=== PATIENT | male | born 1950 | race Caucasian/White ===

== ENCOUNTER 2025-01-09 08:31 | Inpatient (IN) ==
[2025-01-09 09:03] LABS: BASOPHILS % (AUTO) 0.2 %; HCT - HEMATOCRIT 38.8 % (42.0-52.0); HGB - HEMOGLOBIN 12.7 g/dL (14.0-18.0); LYMPHOCYTES % (AUTO) 11.7 %; MEAN CORPUSCULAR HEMOGLOBIN 32.1 pg (27.0-31.0); MEAN CORPUSCULAR HGB CONC 32.7 g/dL (32.0-36.0); MEAN PLATELET VOLUME 9.7 fL (7.4-11.4); MONOCYTES % (AUTO) 2.9 %; NEUTROPHILS % (AUTO) 83.5 %; PLT - PLATELET COUNT 146 10^3/uL (130-450); RED BLOOD COUNT 3.96 10^6/uL (4.70-6.10); RED CELL DISTRIBUTION WIDTH 13.2 % (12.0-15.0); WHITE BLOOD COUNT 4.2 x10^3/uL (4.8-10.8)
[2025-01-09 09:04] LABS: ABNORMAL LYMPHS % (MANUAL) 0 %
--- NOTE | 2025-01-09 09:09 | ED Physician Documentation ---
History of Present Illness Stated complaint Stated Complaint: COUGH/SOA Chief complaint Chief Complaint: Resp History obtained from History obtained from: Patient and Family History of Present Illness Pain level max: 0 Pain level now: 0 Additonal information Additional information: Patient is a 74-year-old male who was sent from the walk-in clinic for increasing shortness of breath over the past several days. Oxygen saturation at the walk-in clinic was 79% on room air. No fevers but has had cough with green sputum. He has a history of Parkinson's disease and takes carbidopa levodopa. No abdominal pain, nausea, vomiting. Had a chest x-ray there which was consistent with multifocal pneumonia, combined with the hypoxia was sent here for evaluation. Patient does not have any history of lung disease, does not use oxygen at home Review of Systems Constitutional Denies: Fever or Chills Ears, nose, mouth, and throat Denies: Neck pain Respiratory Reports: Cough Gastrointestinal Denies: Nausea or Vomiting Musculoskeletal Denies: Back pain or Neck pain Integumentary/Breast Denies: Rash Meds/Allgy Home Medications Ambulatory Orders Medication Instructions Recorded Confirmed carbidopa 25 mg-levodopa 100 mg 2 tab PO QID 01/09/25 01/09/25 tablet Allergies Allergies Allergy/AdvReac Type Severity Reaction Status Date / Time No Known Drug Allergies Allergy Verified 01/09/25 08:39 PFSH Active Problems All Active Problems (Updated 01/09/25 @ 10:13 by Tony Lew MD) Hypoxia (Acute) Pneumonia (Acute) Chest congestion (Acute) Encounter for long-term current use of medication (Acute) Parkinson disease (Acute) Social History Social History (Updated 11/16/24 @ 16:17 by Shasta Siddiqi NP) Smoking Status: Never smoker Second hand tobacco smoke exposure: No Do you dip or chew tobacco?: No Do you vape?: No Patient requests smoking cessation consult: No Initiate information on smoking cessation: No Relationship: Level: Assisted Home Mobility Equipment: Cane and Walker Do you feel safe in your home environment?: Yes Suffered physical, verbal, emotional, or financial abuse?: No Substance Use: denies use POLST Patient has POLST: No Exam Constitutional normal general appearance and no apparent distress HENMT oropharynx normal moist mucous membranes Eyes PERRL Neck/C-Spine visual inspection normal Respiratory normal respiratory effort Diminished breath sounds with crackles bilaterally Cardiovascular normal heart rate noted and regular rhythm noted Gastrointestinal abdomen normal to inspection, abdomen soft to palpation, nontender to palpation and nondistended Genitourinary no CVA tenderness Extremities no edema Neurology speech normal Psychiatry mental status grossly normal and oriented x3 Skin skin color normal Results Vitals Vitals: Vital Signs - 24 hr 01/09/25 08:36 01/09/25 08:40 01/09/25 08:41 Temperature 36.5 C Temperature Source Temporal Artery Scan Pulse Rate 64 Respiratory Rate 20 Blood Pressure 120/70 O2 Saturation 88 L 94 Oxygen Delivery Method Nasal Cannula O2 Source Room air Nasal cannula If not protocol: Oxygen Flow, liters/minute 6 6 Pain Intensity 0 01/09/25 10:00 01/09/25 10:41 Temperature Temperature Source Pulse Rate 61 61 Respiratory Rate 20 18 Blood Pressure 121/77 112/74 O2 Saturation 94 95 Oxygen Delivery Method O2 Source Nasal cannula Nasal cannula If not protocol: Oxygen Flow, liters/minute 6 6 Pain Intensity 0 0 Oxygen O2 Source Nasal cannula EKG (time done) 0855: EKG releavant findings:: EKG personally interpreted by author of this note. Relevant findings are: Rate: Other (59 bpm. Sinus rhythm. Short IA interval. Right bundle branch block, left anterior fascicular block. No ischemic changes) Labs Labs: Laboratory Tests 01/09/25 01/09/25 01/09/25 08:51 08:56 09:44 WBC 4.2 L RBC 3.96 L Hgb 12.7 L Hct 38.8 L MCV 98.0 H MCH 32.1 H MCHC 32.7 RDW 13.2 Plt Count 146 MPV 9.7 Neut # (Auto) Not Reportable Lymph # (Auto) Not Reportable [place] # (Auto) Not Reportable Eos # (Auto) Not Reportable Baso # (Auto) Not Reportable Absolute Nucleated RBC Not Reportable Total Counted 100 Band Neuts % (Manual) 2 Abnorm Lymph % (Manual) 0 Nucleated RBC % Not Reportable Neutrophils # (Manual) 3.6 Lymphocytes # (Manual) 0.4 L Monocytes # (Manual) 0.2 Eosinophils # (Manual) 0.0 Basophils # (Manual) 0.0 Differential Comment MANUAL DIFFERENTIAL Platelet Estimate NORMAL (130-450,000) Platelet Morphology NORMAL APPEARANCE RBC Morph Micro Appear NORMAL APPEARANCE Sodium 141 Potassium 4.3 Chloride 107 Carbon Dioxide 25 Anion Gap 9.0 BUN 37 H Creatinine 1.7 H Estimated GFR (MDRD) 39 L Glucose 104 Lactic Acid 0.9 Calcium 8.4 L Total Bilirubin 0.4 AST 24 ALT < 3 L Alkaline Phosphatase 40 L B-Natriuretic Peptide 57 Total Protein 7.4 Albumin 3.3 Globulin 4.1 Albumin/Globulin Ratio 0.8 L Nasal Adenovirus (PCR) NOT DETECTED Nasal B. parapertussis DNA (PCR) NOT DETECTED Nasal Coronavir 229E PCR NOT DETECTED Nasal Coronavir HKU1 PCR NOT DETECTED Nasal Coronavir NL63 PCR NOT DETECTED Nasal Coronavir OC43 PCR NOT DETECTED Nasal Enterovir/Rhinovir PCR NOT DETECTED Nasal Influenza B PCR NOT DETECTED Nasal Influenza A PCR NOT DETECTED Nasal Parainfluen 1 PCR NOT DETECTED Nasal Parainfluen 2 PCR NOT DETECTED Nasal Parainfluen 3 PCR NOT DETECTED Nasal Parainfluen 4 PCR NOT DETECTED Nasal RSV (PCR) NOT DETECTED Nasal B.pertussis DNA PCR NOT DETECTED Nasal C.pneumoniae (PCR) NOT DETECTED Ming Human Metapneumo PCR NOT DETECTED Nasal M.pneumoniae (PCR) NOT DETECTED Nasal SARS-CoV-2 (PCR) NOT DETECTED Rads (name of study) cxr: Relevant Findings:: Final report received PD Medical Decision Making ED course Complexity details: reviewed results, considered differential and d/w patient ED course: Patient is a 74-year-old male with multifocal pneumonia and hypoxia. Blood cultures drawn, lactate drawn. Given Rocephin and azithromycin. He was maintained on 6 L nasal cannula. Respiratory PCR is negative. Discussed the case with the hospitalist and will admit for pneumonia and hypoxia. This document was made in part using voice recognition software. While efforts are made to proofread this document, sound alike and grammatical errors may occur. Discharge Plan Discharge Patient Disposition: [facility] DC/Xfer Condition: Stable Clinical Impression: Hypoxia Pneumonia Qualifiers: Pneumonia type: due to unspecified organism Laterality: bilateral Lung location: unspecified part of lung Qualified Code(s): J18.9 - Pneumonia, unspecified organism Interventions: ED Admission Assessment Last Done: 01/09/25 10:41
[2025-01-09 09:22] LABS: ALBUMIN 3.3 g/dL (3.2-5.5); ALBUMIN/GLOBULIN RATIO 0.8 (1.0-2.2); ALKALINE PHOSPHATASE 40 IU/L (42-121); ALT ALANINE AMINOTRANSFERASE < 3 IU/L (10-60); AST ASPARTATE AMINOTRANSFERASE 24 IU/L (10-42); BILIRUBIN,TOTAL 0.4 mg/dL (0.2-1.0); BUN - BLOOD UREA NITROGEN 37 mg/dL (6-20); CALCIUM 8.4 mg/dL (8.5-10.3); CARBON DIOXIDE - CO2 25 mmol/L (21-32); CHLORIDE 107 mmol/L (101-111); CREATININE 1.7 mg/dL (0.6-1.3); GFR - MDRD 39 (>89); GLUCOSE 104 mg/dL (74-104); POTASSIUM 4.3 mmol/L (3.5-4.5); SODIUM 141 mmol/L (135-145); TOTAL PROTEIN 7.4 g/dL (6.4-8.9)
[2025-01-09 09:40] LABS: BAND NEUTROPHILS % (MANUAL) 2 %; LYMPHOCYTES # (MANUAL) 0.4 10^3/uL (1.5-3.5); LYMPHOCYTES % (MANUAL) 10 %; MONOCYTES # (MANUAL) 0.2 10^3/uL (0.0-1.0); NEUTROPHILS # (MANUAL) 3.6 10^3/uL (1.5-6.6); PLATELET ESTIMATE, MANUAL NORMAL (130-450,000) (NORMAL); PLATELET MORPHOLOGY NORMAL APPEARANCE (NORMAL); RBC MORPHOLOGY (MULTIPLE) NORMAL APPEARANCE (NORMAL)
[2025-01-09 09:41] LABS: DIFFERENTIAL COMMENT MANUAL DIFFERENTIAL
[2025-01-09 09:52] LABS: B. PARAPERTUSSIS- RESP PCR PAN NOT DETECTED; B. PERTUSSIS- RESP PCR PANEL NOT DETECTED; C. PNEUMONIAE- RESP PCR PANEL NOT DETECTED; CORONAVIRUS 229E-RESP PCR NOT DETECTED; CORONAVIRUS HKU1-RESP PCR NOT DETECTED; CORONAVIRUS NL63-RESP PCR NOT DETECTED; CORONAVIRUS OC43-RESP PCR NOT DETECTED; HUMAN METAPNEUMOVIRUS NOT DETECTED; INFLUENZA A- RESP PCR PANEL NOT DETECTED; INFLUENZA B - RESP PCR PANEL NOT DETECTED; M. PNEUMONIAE- RESP PCR PANEL NOT DETECTED; PARAINFLUENZA VIRUS 1 NOT DETECTED; PARAINFLUENZA VIRUS 2 NOT DETECTED; PARAINFLUENZA VIRUS 4 NOT DETECTED; RHINOVIRUS/ENTEROVIRUS NOT DETECTED; RSV- RESP PCR PANEL NOT DETECTED; SARS-CoV-2 -RESP PCR PANEL NOT DETECTED
[2025-01-09] MEDS: cefTRIAXone 1 GM VIAL IVP STA (09:53)
[2025-01-09] MEDS: SODIUM CHLORIDE 0.9% 1,000 ML IV STA (09:53)
[2025-01-09] MEDS: AZITHROMYCIN INJ 500 MG in SODIUM CHLORIDE 0.9% 250 ML IV STA (10:06)
[2025-01-09] MEDS ORDERED: ONDANSETRON 4 MG/2 ML VIAL IVP PRN (11:14)
[2025-01-09] MEDS: metroNIDAZOLE 500 MG/100 ML 500 MG/100 ML BAG IV SCH (12:13)
[2025-01-09] MEDS: CARBIDOPA/LEVODOPA 25 MG/100 MG TABLET PO SCH ×2 (12:20→17:00)
--- NOTE | 2025-01-09 12:45 | HISTORY & PHYSICAL EXAMINATION ---
Chief Complaint Chief Complaint Chief Complaint: cough and shortness of breath. History of Present Illness Admitted From Admitted From:: home History Obtained From Records Reviewed: Walk-in clinic visit today. History obtained from: Patient and History of Present Illness HPI Comment/Other: Has been feeling sick with a cold for about 1 week. Started with achiness and fatigue and then went into a chest cold which is just making him worse. He has a history of Parkinson's disease for which she takes Sinemet. He feels like he is just getting much weaker as he has had this virus. His cough is occasionally productive. He denies any difficulty swallowing or any choking. He has not had any fevers he does admit to some night sweats. He has not had any nausea vomiting or diarrhea although his appetite has been decreased. As he never he goes on we discussed sleep apnea. His has noted some episodes of apnea as he is sleeping. He does take a nap every day after lunch. He denies any sleepiness while driving. At baseline he is ambulatory with a walker and maintains all of his ADLs. He drives. He recently went on a trip to [place] with 4 of his children. He did well and enjoyed this, however, he got sick on arrival home. Meds/Allgy Home Medications Ambulatory Orders Medication Instructions Recorded Confirmed carbidopa 25 mg-levodopa 100 mg 2 tab PO QID 01/09/25 01/09/25 tablet Allergies Allergies Allergy/AdvReac Type Severity Reaction Status Date / Time No Known Drug Allergies Allergy Verified 01/09/25 08:39 PFSH Active Problems All Active Problems (Updated 01/09/25 @ 20:54 by CANDIDA Grace) Acute hypoxic respiratory failure (Acute) Hypoxia (Acute) Pneumonia (Acute) Chest congestion (Acute) Encounter for long-term current use of medication (Acute) Parkinson disease (Acute) Social History Social History (Updated 11/16/24 @ 16:17 by Shasta Siddiqi NP) Smoking Status: Never smoker Second hand tobacco smoke exposure: No Do you dip or chew tobacco?: No Do you vape?: No Patient requests smoking cessation consult: No Initiate information on smoking cessation: No Relationship: Level: Assisted Home Mobility Equipment: Walker Do you feel safe in your home environment?: Yes Suffered physical, verbal, emotional, or financial abuse?: No Substance Use: denies use POLST Patient has POLST: No POLST Status: Full Code Review of Systems Status of ROS: 10 or more systems reviewed and unremarkable except as noted in history and below Prior Level of Functionality: Drives. walks with a walker. lives [place] home with . [place]. Exam Constitutional Well-groomed elderly male who appears his stated age. He does look like he feels poorly. HENMT normocephalic, hearing grossly normal bilaterally, external ears normal and oropharynx normal Eyes conjunctivae normal Neck/C-Spine visual inspection normal Lymph no lymphadenopathy noted Chest inspection of chest normal Respiratory breath sounds equal bilaterally and normal respiratory effort diffuse rhonchi all lung tim Cardiovascular normal heart rate noted, regular rhythm noted and no murmur Gastrointestinal abdomen normal to inspection and abdomen soft to palpation Extremities normal to inspection Neurology gait normal (shuffles), speech normal and GCS 15 Psychiatry mental status grossly normal, oriented x3, cooperative and affect normal Skin skin color normal Conclusion/Plan Problem List (1) Acute hypoxic respiratory failure: Plan: He has been sick with an upper respiratory infection for approximately a week. He presented to the walk-in clinic this morning with an oxygen saturation of 79% on room air. He was transferred via EMS to the emergency department. His current O2 saturations are 94 to 95% on 6 L via nasal cannula. He is actively coughing. His Tmax in the emergency department is 38.2. His respiratory panel is negative. His chest x-ray shows multifocal pneumonia. He denies any difficulty swallowing or aspiration events. This is a patient with Parkinson's disease and an episode of acute hypoxic respiratory failure secondary to multifocal pneumonia. I am treating him for community-acquired pneumonia with azithromycin and Rocephin. He will receive 3 days of azithromycin and 5 days of Rocephin. In addition due to the incidence of aspiration with Parkinson's disease I we will be adding Flagyl to his antibiotic regimen. I have discussed this patient with Dr. Macdonald, emergency department physician and decision was made to admit this patient to inpatient status for treatment of his acute hypoxic respiratory failure due to multifocal pneumonia. I believe he will be admitted for at least 2 midnights. He will be given IV antibiotics and supportive oxygen to treatment. He was evaluated by Occupational Therapy today who is recommending [facility] facility placement for rehab. However as we treat his illness his functional status will likely improve. (2) Pneumonia: Plan: Chest x-ray completed today shows patchy bilateral opacities left greater than right. If he does not improve with treatment as detailed above I will consider chest CT. Qualifiers: Laterality: bilateral Lung location: unspecified part of lung P neumonia type: due to unspecified organism Qualified Code(s): J18.9 - Pneumonia, unspecified organism (3) Parkinson disease: Plan: He is followed by Dr. Anushka Morejon of [place] [facility]. He is stable on his current Sinemet dosing. He is acutely weak due to this infection. Plan I have spent 80 minutes in the care of this patient today. This includes time [id number], review and ordering of diagnostic imaging and laboratory studie, s and consultation with other providers.. Monitoring the patient's signs symptoms, evaluation of medication effectiveness and patient's response to treatment. Lab Results Lab results reviewed: Yes 01/09/25 08:56 01/09/25 08:56 Diagnostic Imaging Results Diagnostic Imaging Results: positive Final report reviewed and Read independently Diagnostic Imaging Results Comments: multifocal PNA Core Measures Anticipated LOS I expect patient to be DC'd or transferred within 96 hours.: Yes Issues Hospital Issues and Management Plan: Supportive care and antibiotics DVT/VTE - Prophylaxis VTE/DVT Device ordered at admit?: Yes VTE/DVT Prophylaxis med ordered at admit?: Yes
[2025-01-09] MEDS: IPRATROPIUM/ALBUTEROL 3 ML NEB INH PRN (12:58)
[2025-01-09] MEDS: guaiFENesin 600 MG TABLET PO SCH (13:26)
--- NOTE | 2025-01-09 13:49 | PHARMACY PROGRESS NOTE ---
Best Possible Medication History Admit Date and Time: 01/09/25 [id number] Home Medications Medication Instructions Recorded Confirmed Type carbidopa 25 mg-levodopa 100 mg 2 tab PO QID 01/09/25 01/09/[address] [facility] Statement: Pt interview and [facility] Rx records reviewed. As the person ultimately responsible for medication therapy, providers are able to order a medication from an existing home medication list in [facility] via the "Reconcile Routine" prior to Confirmation of that medication by field technical support consultant. Such practice is discouraged except when the physician, in their clinical judgment, deems that a medical need exists for a medication without regard to previous use.
--- NOTE | 2025-01-09 15:12 | OT Plan of Care ---
OT Plan of Care OT Plan of Care: Diagnosis Diagnosis PNA Chief Complaint SOB Onset of Chief Complaint [employer]ER Assessment Assessment Patient is a 74-year-old male with significant PMHx of Parkinsons; MOD I at home with A of occasionally however reporting mostly indp up until recent week of illness. Pt sent from the walk-in clinic for increasing shortness of breath over the past several days. Oxygen saturation at the walk-in clinic was 79% on room air. Chest x-ray there which was consistent with multifocal pneumonia, combined with the hypoxia. OT eval per MD request. Met supine in bed, A&Ox4, willing to participate with therapy. Met on 6L NC O2- Spo2 91% at rest; desat to87% with mobility; Recovery to 91% with PLB and rest . Educated on use of IS Fair understanding. Pt performed supine to sit MODA, sit to stand MIN A, and ambulation 5ft bed to chair MIN A using RW shuffling, forward posture. Cues for safety and processing of mobility. Currently MOD A LB, MIN A UB ADL with full set up and increased time. Commode for toileting with nursing rec. Overall presents with decreased endurance, activity tolerance and ADL status. Will benefit from cont OT services during acute stay. Rec d/c to SNF at this time. Goals - Activities of Daily Living Improve Upper Extremity Modified Independent Dressing to: Improve Lower Extremity Modified Independent Dressing to: Improve Grooming/Hygiene to: Modified Independent Improve Bathing to: Modified Independent Improve Toileting to: Modified Independent Plan Treatment Frequency 1x/day Duration Until discharge -Discharge Recommendations Discharge Location Nursing Home Facility Transport Needs at Discharge Norma
[2025-01-09] MEDS: SODIUM CHLORIDE FLUSH 0.9% 10 ML SYRINGE IVP SCH (17:00)
[2025-01-09] MEDS: HEPARIN 5,000 UNIT/ML VIAL SUBQ SCH (20:24)
[2025-01-09] MEDS: SODIUM CHLORIDE FLUSH 0.9% 10 ML SYRINGE IVP PRN (20:25)
[2025-01-10 05:10] LABS: BASOPHILS % (AUTO) 0.2 %; HCT - HEMATOCRIT 37.9 % (42.0-52.0); HGB - HEMOGLOBIN 12.1 g/dL (14.0-18.0); LYMPHOCYTES % (AUTO) 12.8 %; MEAN CORPUSCULAR HEMOGLOBIN 31.7 pg (27.0-31.0); MEAN CORPUSCULAR HGB CONC 31.9 g/dL (32.0-36.0); MEAN CORPUSCULAR VOLUME 99.2 fL (80.0-94.0); MEAN PLATELET VOLUME 9.9 fL (7.4-11.4); NEUTROPHILS % (AUTO) 82.1 %; PLT - PLATELET COUNT 150 10^3/uL (130-450); RED BLOOD COUNT 3.82 10^6/uL (4.70-6.10); RED CELL DISTRIBUTION WIDTH 13.3 % (12.0-15.0); WHITE BLOOD COUNT 4.3 x10^3/uL (4.8-10.8)
[2025-01-10 05:23] LABS: ABNORMAL LYMPHS % (MANUAL) 0 %; CALCIUM 7.7 mg/dL (8.5-10.3); CREATININE 1.4 mg/dL (0.6-1.3); POTASSIUM 4.5 mmol/L (3.5-4.5)
[2025-01-10 06:36] LABS: BAND NEUTROPHILS % (MANUAL) 4 %; LYMPHOCYTES # (MANUAL) 0.5 10^3/uL (1.5-3.5); LYMPHOCYTES % (MANUAL) 11 %; MONOCYTES # (MANUAL) 0.1 10^3/uL (0.0-1.0); NEUTROPHILS # (MANUAL) 3.7 10^3/uL (1.5-6.6)
[2025-01-10 06:37] LABS: DIFFERENTIAL COMMENT MANUAL DIFFERENTIAL; PLATELET ESTIMATE, MANUAL NORMAL (130-450,000) (NORMAL); PLATELET MORPHOLOGY NORMAL APPEARANCE (NORMAL); RBC MORPHOLOGY (MULTIPLE) NORMAL APPEARANCE (NORMAL); WBC MORPHOLOGY (MULTIPLE) NORMAL APPEARANCE (NORMAL)
[2025-01-10] MEDS: cefTRIAXone 1 GM VIAL IVP SCH (08:33)
[2025-01-10] MEDS: AZITHROMYCIN INJ 500 MG in SODIUM CHLORIDE 0.9% 250 ML IV SCH (08:34)
--- NOTE | 2025-01-10 15:47 | PROVIDER PROGRESS NOTE ---
Subjective Prog Note Date Prog Note Date: 01/10/25 Subjective Pt reports feeling: Improved Subjective: He has been out of bed to the bathroom and to the shower, as well as up for meals. yesterday, with any activity was desaturating, but today is able to do those things without desaturation. Still feels weak, and tired. At home he is ambulatory with a walker, but does very well and is mostly independent. Seen by OT yesterday, SNF recommended, but he was early in his course at that time. Current Medications Current Medications Current Medications: Current Medications Generic Name Dose Route Start Last Admin Trade Name Freq PRN Reason Stop Dose Admin Acetaminophen 650 mg 01/09/25 11:14 Acetaminophen 325 Mg Tablet PO Q4HR PRN Pain 1 to 4, or Fever Albuterol/Ipratropium 3 ml 01/09/25 12:42 01/09/25 12:58 Ipratropium/Albuterol 3 Ml Neb INH 3 ml RTQID PRN Administration Shortness of Air/Wheezing Carbidopa/Levodopa 2 tab 01/09/25 15:24 01/10/25 13:23 Carbidopa/Levodopa 25 Mg/100 Mg Tablet PO 2 tab QID REBECCA Administration Ceftriaxone Sodium 1 gm 01/10/25 09:00 01/10/25 08:33 Ceftriaxone 1 Gm Vial IVP 1 gm DAILY REBECCA Administration Guaifenesin 1,200 mg 01/09/25 13:00 01/10/25 08:33 Guaifenesin 600 Mg Tablet PO 1,200 mg BID REBECCA Administration Heparin Sodium (Porcine) 5,000 unit 01/09/25 21:00 01/10/25 08:33 Heparin 5,000 Unit/Ml Vial SUBQ 5,000 unit BID REBECCA Administration Azithromycin 500 mg/ Sodium 250 mls @ 250 mls/hr 01/10/25 09:00 01/10/25 09:40 Chloride IV 01/11/25 09:59 Infused DAILY REBECCA Infusion Metronidazole 500 mg in 100 mls @ 100 mls/hr 01/09/25 12:00 01/10/25 15:26 Flagyl 500 Mg/100 Ml IV 01/14/25 11:59 Infused Q8H REBECCA Infusion Ondansetron HCl 4 mg 01/09/25 11:14 Ondansetron 4 Mg/2 Ml Vial IVP Q6HR PRN Nausea / Vomiting Sodium Chloride 10 ml 01/09/25 11:14 01/09/25 20:25 Sodium Chloride Flush 0.9% 10 Ml Syringe IVP 10 ml PRN PRN Administration NEEDED PER PROVIDER ORDERS Sodium Chloride 10 ml 01/09/25 17:00 01/10/25 08:34 Sodium Chloride Flush 0.9% 10 Ml Syringe IVP 10 ml 0100,0900,1700 REBECCA Administration Objective Vital Signs/Intake & Output Reviewed Vital Signs: Yes Vital Signs: Vital Signs x48h Temp Pulse Resp BP Pulse Ox O2 Flow Rate 01/10/25 08:45 37.3 C 58 L 24 121/79 91 L 6 Intake & Output: Intake & Output 01/07/25 01/08/25 01/09/25 01/10/25 23:59 23:59 23:59 23:59 Intake Total 2506 / 2506 1530 / 1530 Output Total 425 / 425 775 / 775 Balance 2080 / 1 755 / 755 Weight (kg) 85 kg Objective General Appearance: positive No acute distress and Alert Eyes Bilateral: positive Normal inspection ENT: positive ENT inspection nml Neck: positive Nml inspection and No JVD Respiratory: positive Chest non-tender and No respiratory distress; negative Rhonchi (occasional) Cardiovascular: positive Regular rate & rhythm Abdomen: positive No distention Skin: positive Color nml Extremities: positive Non-tender and No pedal edema Neurologic/Psychiatric: positive Oriented x3 Lab Results 01/10/25 04:49 01/10/25 04:49 Other Labs: Lab Results x24hrs 01/10/25 Range/Units 04:49 WBC 4.3 L (4.8-10.8) x10^3/uL RBC 3.82 L (4.70-6.10) 10^6/uL Hgb 12.1 L (14.0-18.0) g/dL Hct 37.9 L (42.0-52.0) % MCV 99.2 H (80.0-94.0) fL MCH 31.7 H (27.0-31.0) pg MCHC 31.9 L (32.0-36.0) g/dL RDW 13.3 (12.0-15.0) % Plt Count 150 (130-450) 10^3/uL MPV 9.9 (7.4-11.4) fL Neut # (Auto) Not Reportable Lymph # (Auto) Not Reportable [place] # (Auto) Not Reportable Eos # (Auto) Not Reportable Baso # (Auto) Not Reportable Absolute Nucleated RBC Not Reportable Total Counted 100 Band Neuts % (Manual) 4 (0 - 10) % Abnorm Lymph % (Manual) 0 % Nucleated RBC % Not Reportable Neutrophils # (Manual) 3.7 (1.5-6.6) 10^3/uL Lymphocytes # (Manual) 0.5 L (1.5-3.5) 10^3/uL Monocytes # (Manual) 0.1 (0.0-1.0) 10^3/uL Eosinophils # (Manual) 0.0 (0-0.7) 10^3/uL Basophils # (Manual) 0.0 (0-0.1) 10^3/uL Differential Comment MANUAL DIFFERENTIAL WBC Morphology NORMAL APPEARANCE (NORMAL) Platelet Estimate NORMAL (130-450,000) (NORMAL) Platelet Morphology NORMAL APPEARANCE (NORMAL) RBC Morph Micro Appear NORMAL APPEARANCE (NORMAL) Sodium 142 (135-145) mmol/L Potassium 4.5 (3.5-4.5) mmol/L Chloride 110 (101-111) mmol/L Carbon Dioxide 24 (21-32) mmol/L Anion Gap 8.0 (6-13) BUN 28 H (6-20) mg/dL Creatinine 1.4 H (0.6-1.3) mg/dL Estimated GFR (MDRD) 49 L (>89) Glucose 105 H (74-104) mg/dL Calcium 7.7 L (8.5-10.3) mg/dL Assessment/Plan Problem List (1) Acute hypoxic respiratory failure: Impression: He has been sick with an upper respiratory infection for approximately a week. He presented to the walk-in clinic morning with an oxygen saturation of 79% on room air. He was transferred via EMS to the emergency department. His cough is improving. His respiratory panel is negative. His chest x-ray shows multifocal pneumonia. He denies any difficulty swallowing or aspiration events. I have considered the need for chest CT, and actually discussed it with patient who would prefer to defer until tomorrow, and to not have this study if clinical improvement continues This is a patient with Parkinson's disease and an episode of acute hypoxic respiratory failure secondary to multifocal pneumonia. I am treating him for community-acquired pneumonia with azithromycin and Rocephin. He will receive 3 days of azithromycin and 5 days of Rocephin. In addition due to the incidence of aspiration with Parkinson's disease I have added Flagyl to his coverage. He is tolerating much more activity today than yesterday without desaturation, which is indicative of improvement. (2) Pneumonia: Impression: Chest x-ray shows patchy bilateral opacities left greater than right. If he does not improve with treatment as detailed above I will consider chest CT. Covering with CAP as well as aspiration. He is day 2/3 Zithromax, day 2/5 rocephin, day 2/5 flagyl. hypoxia improving. no history of underlying lung disease. Qualifiers: Laterality: bilateral Lung location: unspecified part of lung P neumonia type: due to unspecified organism Qualified Code(s): J18.9 - Pneumonia, unspecified organism (3) Parkinson disease: Impression: He is followed by Dr. Anushka Morejon of [place] [facility]. He is stable on his current Sinemet dosing. He is acutely weak due to this infection. He has been up with help today. not strong enough to go home yet. Discussion today of some heel pain that happens at night. no evidence of skin changes or abnormality of heels on exam. no hypersensitivity to touch. discussed w patient and offered gabapentin or mirapex. He would prefer not to treat at this time. OT recommended SNF, he is trying to go home and will continue to work towards this. I have spent 38 minutes in the care of this patient today. This includes time [id number], review and ordering of diagnostic imaging and laboratory studies.. Monitoring the patient's signs symptoms, evaluation of medication effectiveness and patient's response to treatment.
[2025-01-10] MEDS: BUDESONIDE 0.5 MG/2 ML NEB INH SCH (19:47)
[2025-01-10] MEDS: ACETAMINOPHEN 325 MG TABLET PO PRN (20:51)
[2025-01-11 05:48] LABS: BASOPHILS % (AUTO) 0.2 %; EOSINOPHILS % (AUTO) 0.4 %; HCT - HEMATOCRIT 36.9 % (42.0-52.0); HGB - HEMOGLOBIN 12.2 g/dL (14.0-18.0); LYMPHOCYTES # (AUTO) 0.6 10^3/uL (1.5-3.5); LYMPHOCYTES % (AUTO) 12.1 %; MEAN CORPUSCULAR HEMOGLOBIN 32.4 pg (27.0-31.0); MEAN CORPUSCULAR HGB CONC 33.1 g/dL (32.0-36.0); MEAN CORPUSCULAR VOLUME 97.9 fL (80.0-94.0); MEAN PLATELET VOLUME 9.4 fL (7.4-11.4); MONOCYTES # (AUTO) 0.2 10^3/uL (0.0-1.0); MONOCYTES % (AUTO) 3.6 %; NEUTROPHILS # (AUTO) 3.8 10^3/uL (1.5-6.6); NEUTROPHILS % (AUTO) 81.6 %; PLT - PLATELET COUNT 171 10^3/uL (130-450); RED BLOOD COUNT 3.77 10^6/uL (4.70-6.10); RED CELL DISTRIBUTION WIDTH 13.2 % (12.0-15.0); WHITE BLOOD COUNT 4.7 x10^3/uL (4.8-10.8)
[2025-01-11 06:03] LABS: CALCIUM 7.8 mg/dL (8.5-10.3); CREATININE 1.1 mg/dL (0.6-1.3); POTASSIUM 4.1 mmol/L (3.5-4.5)
[2025-01-11 06:11] LABS: PLATELET ESTIMATE, MANUAL NORMAL (130-450,000) (NORMAL); PLATELET MORPHOLOGY NORMAL APPEARANCE (NORMAL); RBC MORPHOLOGY (MULTIPLE) NORMAL APPEARANCE (NORMAL)
[2025-01-11 06:12] LABS: DIFFERENTIAL COMMENT MANUAL=AUTO DIFF; WBC MORPHOLOGY (MULTIPLE) NORMAL APPEARANCE (NORMAL)
[2025-01-11] MEDS ORDERED: iohexoL-300 100 ML VIAL ONE (13:45)
[2025-01-11] MEDS: iohexoL-300 100 ML VIAL IVP ONE (15:58)
--- NOTE | 2025-01-11 16:37 | CT Report ---
PROCEDURE: CT Chest W INDICATIONS: multifocal PNA CONTRAST: omni 300, 100 TECHNIQUE: After the administration of intravenous contrast, a CT scan of the chest was performed. Images were recorded and evaluated at appropriate window settings. Reformats: axial MIP of the chest, coronal and sagittal. For radiation dose reduction, the following was used: automated exposure control, adjustme nt of mA and/or kV according to patient size. COMPARISON: Chest 2 views dated 01/09/2025 FINDINGS: Image quality: Diagnostic. Chest wall and lower neck: No thyroid nodule which requires sonographic follow up. No breast mass. No axillary or supraclavicular adenopathy by size. Lungs and pleura: Extensive bilateral predominantly interstitial infiltrates with a somewhat geograph ic border and patchy focal areas of more confluent airspace consolidation. Findings most likely repre sent bilateral viral pneumonitis. Differential includes Covid 19 pneumonia. No pleural effusions. No pneumothorax. No suspicious pulmonary nodules which require follow up. Mediastinum: Heart size is normal. No pericardial effusion. No large vessel abnormality. There is pro minent right hilar and subcarinal adenopathy, potentially reactive. Bones: No aggressive osseous abnormality. Upper Abdomen: Unremarkable. IMPRESSION: Extensive somewhat geographic bilateral interstitial infiltrates with small focal areas of more confl uent airspace consolidation. Findings likely represent viral pneumonitis. Differential includes Covid 19 pneumonia. Reviewed by: Guilherme Becerril MD on 01/11/2025 4:36 PM PDT Approved by: Guilherme Becerril MD on 01/11/2025 4:36 PM PDT Station ID: [id number]
[2025-01-11] MEDS ORDERED: DEXAMETHASONE 20 MG/5 ML VIAL IVP ONE (17:02)
[2025-01-11] MEDS: DEXAMETHASONE 10 MG/ML VIAL IVP ONE (18:28)
[2025-01-11 18:49] LABS: B. PARAPERTUSSIS- RESP PCR PAN NOT DETECTED; B. PERTUSSIS- RESP PCR PANEL NOT DETECTED; C. PNEUMONIAE- RESP PCR PANEL NOT DETECTED; CORONAVIRUS 229E-RESP PCR NOT DETECTED; CORONAVIRUS HKU1-RESP PCR NOT DETECTED; CORONAVIRUS NL63-RESP PCR NOT DETECTED; CORONAVIRUS OC43-RESP PCR NOT DETECTED; HUMAN METAPNEUMOVIRUS NOT DETECTED; INFLUENZA A- RESP PCR PANEL NOT DETECTED; INFLUENZA B - RESP PCR PANEL NOT DETECTED; M. PNEUMONIAE- RESP PCR PANEL NOT DETECTED; PARAINFLUENZA VIRUS 1 NOT DETECTED; PARAINFLUENZA VIRUS 2 NOT DETECTED; PARAINFLUENZA VIRUS 4 NOT DETECTED; RHINOVIRUS/ENTEROVIRUS NOT DETECTED; RSV- RESP PCR PANEL NOT DETECTED; SARS-CoV-2 -RESP PCR PANEL NOT DETECTED
--- NOTE | 2025-01-11 19:29 | PROVIDER PROGRESS NOTE ---
Subjective Prog Note Date Prog Note Date: 01/11/25 Subjective Pt reports feeling: Improved Subjective: Tells me that he feels better, wants to know what he needs to do to get out of the hospital. He has been ambulatory in the room with his walker. He was seen by OT on Sunday, and SNF was recommended, he and his would like him to go home. His daughter was at the bedside earlier today. Current Medications Current Medications Current Medications: Current Medications Generic Name Dose Route Start Last Admin Trade Name Freq PRN Reason Stop Dose Admin Acetaminophen 650 mg 01/09/25 11:14 01/10/25 20:51 Acetaminophen 325 Mg Tablet PO 650 mg Q4HR PRN Administration Pain 1 to 4, or Fever Albuterol/Ipratropium 3 ml 01/09/25 12:42 01/11/25 19:15 Ipratropium/Albuterol 3 Ml Neb INH 3 ml RTQID PRN Administration Shortness of Air/Wheezing Budesonide 0.5 mg 01/10/25 19:00 01/11/25 19:15 Budesonide 0.5 Mg/2 Ml Neb INH 0.5 mg RTBID REBECCA Administration Carbidopa/Levodopa 2 tab 01/09/25 15:24 01/11/25 17:01 Carbidopa/Levodopa 25 Mg/100 Mg Tablet PO 2 tab QID REBECCA Administration Ceftriaxone Sodium 1 gm 01/10/25 09:00 01/11/25 08:34 Ceftriaxone 1 Gm Vial IVP 1 gm DAILY REBECCA Administration Guaifenesin 1,200 mg 01/09/25 13:00 01/11/25 08:34 Guaifenesin 600 Mg Tablet PO 1,200 mg BID REBECCA Administration Heparin Sodium (Porcine) 5,000 unit 01/09/25 21:00 01/11/25 08:35 Heparin 5,000 Unit/Ml Vial SUBQ 5,000 unit BID REBECCA Administration Metronidazole 500 mg in 100 mls @ 100 mls/hr 01/09/25 12:00 01/11/25 15:27 Flagyl 500 Mg/100 Ml IV 01/14/25 11:59 Infused Q8H REBECCA Infusion Ondansetron HCl 4 mg 01/09/25 11:14 Ondansetron 4 Mg/2 Ml Vial IVP Q6HR PRN Nausea / Vomiting Sodium Chloride 10 ml 01/09/25 11:14 01/11/25 04:52 Sodium Chloride Flush 0.9% 10 Ml Syringe IVP 10 ml PRN PRN Administration NEEDED PER PROVIDER ORDERS Sodium Chloride 10 ml 01/09/25 17:00 01/11/25 17:01 Sodium Chloride Flush 0.9% 10 Ml Syringe IVP 10 ml 0100,0900,1700 REBECCA Administration Objective Vital Signs/Intake & Output Reviewed Vital Signs: Yes Vital Signs: Vital Signs x48h Temp Pulse Pulse Resp BP Pulse Ox O2 Flow Rate 01/11/25 19:15 71 24 6 01/11/25 18:40 90 L 6 01/11/25 18:35 86 L 6 01/11/25 17:50 91 L 6 01/11/25 17:45 86 L 5 01/11/25 16:01 37.2 C 65 24 155/84 H 93 6 Intake & Output: Intake & Output 01/08/25 01/09/25 01/10/25 01/12/25 23:59 23:59 23:59 00:59 Intake Total 2506 / 2506 1969 / 1969 1510 / 1510 Output Total 425 / 425 850 / 850 825 / 825 Balance 2080 / 2080 1120 / 1120 685 / 685 Weight (kg) 85 kg Objective General Appearance: positive No acute distress and Other (mildly dyspneic) Eyes Bilateral: positive Normal inspection and Conjunctivae nml ENT: positive ENT inspection nml Neck: positive Nml inspection Respiratory: positive Rhonchi (bilateral and diffuse, but less than yesterday) Cardiovascular: positive Regular rate & rhythm Abdomen: positive No distention Back: positive Nml inspection Skin: positive Color nml and No rash Extremities: positive No pedal edema Neurologic/Psychiatric: positive Oriented x3 Lab Results 01/11/25 05:30 01/11/25 05:30 Other Labs: Lab Results x24hrs 01/11/25 01/11/25 Range/Units 17:50 05:30 WBC 4.7 L (4.8-10.8) x10^3/uL RBC 3.77 L (4.70-6.10) 10^6/uL Hgb 12.2 L (14.0-18.0) g/dL Hct 36.9 L (42.0-52.0) % MCV 97.9 H (80.0-94.0) fL MCH 32.4 H (27.0-31.0) pg MCHC 33.1 (32.0-36.0) g/dL RDW 13.2 (12.0-15.0) % Plt Count 171 (130-450) 10^3/uL MPV 9.4 (7.4-11.4) fL Neut # (Auto) 3.8 (1.5-6.6) 10^3/uL Lymph # (Auto) 0.6 L (1.5-3.5) 10^3/uL [place] # (Auto) 0.2 (0.0-1.0) 10^3/uL Eos # (Auto) 0.0 (0.0-0.7) 10^3/uL Baso # (Auto) 0.0 (0.0-0.1) 10^3/uL Absolute Nucleated RBC 0.00 x10^3/uL Band Neuts % (Manual) Not Reportable Abnorm Lymph % (Manual) Not Reportable Nucleated RBC % 0.0 /100WBC Neutrophils # (Manual) Not Reportable Lymphocytes # (Manual) Not Reportable Monocytes # (Manual) Not Reportable Eosinophils # (Manual) Not Reportable Basophils # (Manual) Not Reportable Differential Comment MANUAL=AUTO DIFF WBC Morphology NORMAL APPEARANCE (NORMAL) Platelet Estimate NORMAL (130-450,000) (NORMAL) Platelet Morphology NORMAL APPEARANCE (NORMAL) RBC Morph Micro Appear NORMAL APPEARANCE (NORMAL) Sodium 142 (135-145) mmol/L Potassium 4.1 (3.5-4.5) mmol/L Chloride 111 (101-111) mmol/L Carbon Dioxide 23 (21-32) mmol/L Anion Gap 8.0 (6-13) BUN 26 H (6-20) mg/dL Creatinine 1.1 (0.6-1.3) mg/dL Estimated GFR (MDRD) 65 L (>89) Glucose 103 (74-104) mg/dL Calcium 7.8 L (8.5-10.3) mg/dL Nasal Adenovirus (PCR) NOT DETECTED Nasal B. parapertussis DNA (PCR) NOT DETECTED Nasal Coronavir 229E PCR NOT DETECTED Nasal Coronavir HKU1 PCR NOT DETECTED Nasal Coronavir NL63 PCR NOT DETECTED Nasal Coronavir OC43 PCR NOT DETECTED Nasal Enterovir/Rhinovir PCR NOT DETECTED Nasal Influenza B PCR NOT DETECTED Nasal Influenza A PCR NOT DETECTED Nasal Parainfluen 1 PCR NOT DETECTED Nasal Parainfluen 2 PCR NOT DETECTED Nasal Parainfluen 3 PCR NOT DETECTED Nasal Parainfluen 4 PCR NOT DETECTED Nasal RSV (PCR) NOT DETECTED Nasal B.pertussis DNA PCR NOT DETECTED Nasal C.pneumoniae (PCR) NOT DETECTED Ming Human Metapneumo PCR NOT DETECTED Nasal M.pneumoniae (PCR) NOT DETECTED Nasal SARS-CoV-2 (PCR) NOT DETECTED Sepsis Event Note (H) Evaluation Possible source of Sepsis: positive Pulmonary Sepsis Criteria Sepsis Criteria: Recorded Respiratory Rate greater than 20 Assessment/Plan Problem List (1) Acute hypoxic respiratory failure: Impression: He has been sick with an upper respiratory infection for approximately a week. He presented to the walk-in clinic with an oxygen saturation of 79% on room air. He was transferred via EMS to the emergency department. His cough is improving. His respiratory panel is negative. His chest x-ray shows multifocal pneumonia. He denies any difficulty swallowing or aspiration events. I obtained a chest CT today, due to stagnation of his improvement. Results returned as multifocal PNA, cannot rule out COVID. He has had a COVID vaccine this season (October 2024), he has not had flu or RSV shot. I have repeated the viral panel again this afternoon, it is negative. This is a patient with Parkinson's disease and an episode of acute hypoxic respiratory failure secondary to multifocal pneumonia. I am treating him for community-acquired pneumonia with azithromycin and Rocephin. He will receive 3 days of azithromycin (completed 01/11) and 5 days of Rocephin (day 35) In addition due to the incidence of aspiration with Parkinson's disease I have added Flagyl to his coverage. His improvement is stagnant. I have added decadron to his treatment. (2) Pneumonia: Impression: Chest x-ray shows patchy bilateral opacities left greater than right. Chest CT report: Extensive somewhat geographic bilateral interstitial infiltrates with small focal areas of more confluent airspace consolidation. Findings likely represent viral pneumonitis. Differential includes Covid 19 pneumonia. Covering with CAP as well as aspiration. He is day 3/3 Zithromax, day 3/5 rocephin, day 3/5 flagyl. hypoxia improving. no history of underlying lung disease. Qualifiers: Laterality: bilateral Lung location: unspecified part of lung P neumonia type: due to unspecified organism Qualified Code(s): J18.9 - Pneumonia, unspecified organism (3) Parkinson disease: Impression: He is followed by Dr. Anushka Morejon of [place] [facility]. He is stable on his current Sinemet dosing. He is acutely weak due to this infection. He has been up with help today. not strong enough to go home yet. OT recommended SNF, he is trying to go home and will continue to work towards this. I have spent 45 minutes in the care of this patient today. This includes time [id number], review and ordering of diagnostic imaging and laboratory studies.. Monitoring the patient's signs symptoms, evaluation of medication effectiveness and patient's response to treatment.
[2025-01-11 22:15] LABS: ABG BASE EXCESS -2.1 mmol/L (-2.0-3.0); ABG HCO3 22.1 mmol/L (22.0-26.0); ABG OXYGEN SATURATION 94 % (95-98); ABG PCO2 32 mmHg (34-45); ABG PH 7.45 (7.35-7.45); ABG PO2 72 mmHg (83-108); ABG TCO2 23.1 mmol/L (21.0-29.0)
[2025-01-11 22:16] LABS: ALLEN TEST POSITIVE
[2025-01-12 04:54] LABS: BASOPHILS % (AUTO) 0.2 %; HCT - HEMATOCRIT 38.2 % (42.0-52.0); HGB - HEMOGLOBIN 12.4 g/dL (14.0-18.0); LYMPHOCYTES # (AUTO) 0.5 10^3/uL (1.5-3.5); LYMPHOCYTES % (AUTO) 10.5 %; MEAN CORPUSCULAR HEMOGLOBIN 31.6 pg (27.0-31.0); MEAN CORPUSCULAR HGB CONC 32.5 g/dL (32.0-36.0); MEAN CORPUSCULAR VOLUME 97.2 fL (80.0-94.0); MEAN PLATELET VOLUME 9.3 fL (7.4-11.4); MONOCYTES # (AUTO) 0.1 10^3/uL (0.0-1.0); MONOCYTES % (AUTO) 2.2 %; NEUTROPHILS # (AUTO) 3.8 10^3/uL (1.5-6.6); NEUTROPHILS % (AUTO) 84.6 %; PLT - PLATELET COUNT 218 10^3/uL (130-450); RED BLOOD COUNT 3.93 10^6/uL (4.70-6.10); RED CELL DISTRIBUTION WIDTH 12.8 % (12.0-15.0); WHITE BLOOD COUNT 4.5 x10^3/uL (4.8-10.8)
[2025-01-12 05:10] LABS: CALCIUM 8.1 mg/dL (8.5-10.3); POTASSIUM 4.3 mmol/L (3.5-4.5)
[2025-01-12 05:22] LABS: DIFFERENTIAL COMMENT MANUAL=AUTO DIFF; PLATELET ESTIMATE, MANUAL NORMAL (130-450,000) (NORMAL); PLATELET MORPHOLOGY NORMAL APPEARANCE (NORMAL); RBC MORPHOLOGY (MULTIPLE) NORMAL APPEARANCE (NORMAL); WBC MORPHOLOGY (MULTIPLE) NORMAL APPEARANCE (NORMAL)
[2025-01-12] MEDS: MULTIVITAMIN W/MINERALS TABLET PO SCH (12:17)
--- NOTE | 2025-01-12 15:09 | PROVIDER PROGRESS NOTE ---
Subjective Prog Note Date Prog Note Date: 01/12/25 Subjective Pt reports feeling: Improved Subjective: He has been on and off Bipap. complains of pressure in his right ear when on BiPap. makes it hard for him to hear. Fine now that he is on oxymizer. he is dropping down towards 88% while talking with me on oxymizer. appetite a little better today. He has been out of bed to bathroom, but not appropriate for OT today. He is sitting up conversing with his children. Current Medications Current Medications Current Medications: Current Medications Generic Name Dose Route Start Last Admin Trade Name Freq PRN Reason Stop Dose Admin Acetaminophen 650 mg 01/09/25 11:14 01/10/25 20:51 Acetaminophen 325 Mg Tablet PO 650 mg Q4HR PRN Administration Pain 1 to 4, or Fever Albuterol/Ipratropium 3 ml 01/09/25 12:42 01/11/25 19:15 Ipratropium/Albuterol 3 Ml Neb INH 3 ml RTQID PRN Administration Shortness of Air/Wheezing Budesonide 0.5 mg 01/10/25 19:00 01/11/25 19:15 Budesonide 0.5 Mg/2 Ml Neb INH 0.5 mg RTBID REBECCA Administration Carbidopa/Levodopa 2 tab 01/09/25 15:24 01/12/25 12:18 Carbidopa/Levodopa 25 Mg/100 Mg Tablet PO 2 tab QID REBECCA Administration Ceftriaxone Sodium 1 gm 01/10/25 09:00 01/12/25 08:58 Ceftriaxone 1 Gm Vial IVP 1 gm DAILY REBECCA Administration Guaifenesin 1,200 mg 01/09/25 13:00 01/12/25 08:59 Guaifenesin 600 Mg Tablet PO 1,200 mg BID REBECCA Administration Heparin Sodium (Porcine) 5,000 unit 01/09/25 21:00 01/12/25 08:58 Heparin 5,000 Unit/Ml Vial SUBQ 5,000 unit BID REBECCA Administration Metronidazole 500 mg in 100 mls @ 100 mls/hr 01/09/25 12:00 01/12/25 13:18 Flagyl 500 Mg/100 Ml IV 01/14/25 11:59 Infused Q8H REBECCA Infusion Multivitamins/Minerals 1 tab 01/12/25 12:00 01/12/25 12:17 Multivitamin W/Minerals Tablet PO 1 tab DAILYWM REBECCA Administration Ondansetron HCl 4 mg 01/09/25 11:14 Ondansetron 4 Mg/2 Ml Vial IVP Q6HR PRN Nausea / Vomiting Sodium Chloride 10 ml 01/09/25 11:14 01/11/25 04:52 Sodium Chloride Flush 0.9% 10 Ml Syringe IVP 10 ml PRN PRN Administration NEEDED PER PROVIDER ORDERS Sodium Chloride 10 ml 01/09/25 17:00 01/12/25 08:59 Sodium Chloride Flush 0.9% 10 Ml Syringe IVP 10 ml 0100,0900,1700 REBECCA Administration Objective Vital Signs/Intake & Output Reviewed Vital Signs: Yes Vital Signs: Vital Signs x48h Temp Pulse Resp BP Pulse Ox O2 Flow Rate 01/12/25 15:00 15 01/12/25 14:00 74 16 118/66 90 L 12 01/12/25 13:00 59 L 22 113/62 87 L 12 01/12/25 12:00 62 16 108/71 91 L 12 01/12/25 11:10 91 L 12 01/12/25 11:00 64 16 112/77 89 L 12 01/12/25 10:52 12 01/12/25 10:00 71 24 130/83 97 12 01/12/25 09:00 63 18 129/79 93 12 01/12/25 09:00 12 01/12/25 08:00 36.6 C 55 L 17 143/89 H 91 L 5 01/12/25 08:00 15 Intake & Output: Intake & Output 01/09/25 01/10/25 01/12/25 01/12/25 23:59 23:59 00:59 23:59 Intake Total 2506 / 2506 1969 / 1969 1610 / 1610 560 / 560 Output Total 425 / 425 850 / 850 1100 / 1100 350 / 350 Balance 2080 / 2081 1120 / 1120 510 / 510 210 / 210 Weight (kg) 85 kg Objective General Appearance: positive No acute distress, Alert and Other (Appears mildly dyspneic.) ENT: positive ENT inspection nml Neck: positive Nml inspection Respiratory: positive Rhonchi (occasional) Cardiovascular: positive Regular rate & rhythm Abdomen: positive No distention Skin: positive Color nml Extremities: positive Non-tender and No pedal edema Neurologic/Psychiatric: positive Oriented x3 Lab Results 01/12/25 04:26 01/12/25 04:26 Other Labs: Lab Results x24hrs 01/12/25 01/11/25 01/11/25 Range/Units 04:26 22:07 22:00 WBC 4.5 L (4.8-10.8) x10^3/uL RBC 3.93 L (4.70-6.10) 10^6/uL Hgb 12.4 L (14.0-18.0) g/dL Hct 38.2 L (42.0-52.0) % MCV 97.2 H (80.0-94.0) fL MCH 31.6 H (27.0-31.0) pg MCHC 32.5 (32.0-36.0) g/dL RDW 12.8 (12.0-15.0) % Plt Count 218 (130-450) 10^3/uL MPV 9.3 (7.4-11.4) fL Neut # (Auto) 3.8 (1.5-6.6) 10^3/uL Lymph # (Auto) 0.5 L (1.5-3.5) 10^3/uL [place] # (Auto) 0.1 (0.0-1.0) 10^3/uL Eos # (Auto) 0.0 (0.0-0.7) 10^3/uL Baso # (Auto) 0.0 (0.0-0.1) 10^3/uL Absolute Nucleated RBC 0.00 x10^3/uL Band Neuts % (Manual) Not Reportable Abnorm Lymph % (Manual) Not Reportable Nucleated RBC % 0.0 /100WBC Neutrophils # (Manual) Not Reportable Lymphocytes # (Manual) Not Reportable Monocytes # (Manual) Not Reportable Eosinophils # (Manual) Not Reportable Basophils # (Manual) Not Reportable Differential Comment MANUAL=AUTO DIFF WBC Morphology NORMAL APPEARANCE (NORMAL) Platelet Estimate NORMAL (130-450,000) (NORMAL) Platelet Morphology NORMAL APPEARANCE (NORMAL) RBC Morph Micro Appear NORMAL APPEARANCE (NORMAL) Bld Gas Analysis Time 2210 Sample Site LEFT RADIAL ABG pH 7.45 (7.35-7.45) ABG pCO2 32 L (34-45) mmHg ABG pO2 72 L (83-108) mmHg ABG HCO3 22.1 (22.0-26.0) mmol/L ABG Total CO2 23.1 (21.0-29.0) mmol/L ABG O2 Saturation 94 L (95-98) % ABG Base Excess -2.1 L (-2.0-3.0) mmol/L Kunal Test POSITIVE O2 Delivery Device OXYMASK O2 Liters/Min 10.00 LPM Sodium 141 (135-145) mmol/L Potassium 4.3 (3.5-4.5) mmol/L Chloride 110 (101-111) mmol/L Carbon Dioxide 22 (21-32) mmol/L Anion Gap 9.0 (6-13) BUN 21 H (6-20) mg/dL Creatinine 1.0 (0.6-1.3) mg/dL Estimated GFR (MDRD) 73 L (>89) Glucose 177 H (74-104) mg/dL Calcium 8.1 L (8.5-10.3) mg/dL Nasal Adenovirus (PCR) Nasal B. parapertussis DNA (PCR) Nasal Coronavir 229E PCR Nasal Coronavir HKU1 PCR Nasal Coronavir NL63 PCR Nasal Coronavir OC43 PCR Nasal Enterovir/Rhinovir PCR Nasal Influenza B PCR Nasal Influenza A PCR Nasal Parainfluen 1 PCR Nasal Parainfluen 2 PCR Nasal Parainfluen 3 PCR Nasal Parainfluen 4 PCR Nasal RSV (PCR) Nasal Screen MRSA (PCR) NEGATIVE (NEGATIVE) Nasal B.pertussis DNA PCR Nasal C.pneumoniae (PCR) Ming Human Metapneumo PCR Nasal M.pneumoniae (PCR) Nasal SARS-CoV-2 (PCR) 01/11/25 Range/Units 17:50 WBC (4.8-10.8) x10^3/uL RBC (4.70-6.10) 10^6/uL Hgb (14.0-18.0) g/dL Hct (42.0-52.0) % MCV (80.0-94.0) fL MCH (27.0-31.0) pg MCHC (32.0-36.0) g/dL RDW (12.0-15.0) % Plt Count (130-450) 10^3/uL MPV (7.4-11.4) fL Neut # (Auto) (1.5-6.6) 10^3/uL Lymph # (Auto) (1.5-3.5) 10^3/uL [place] # (Auto) (0.0-1.0) 10^3/uL Eos # (Auto) (0.0-0.7) 10^3/uL Baso # (Auto) (0.0-0.1) 10^3/uL Absolute Nucleated RBC x10^3/uL Band Neuts % (Manual) Abnorm Lymph % (Manual) Nucleated RBC % /100WBC Neutrophils # (Manual) Lymphocytes # (Manual) Monocytes # (Manual) Eosinophils # (Manual) Basophils # (Manual) Differential Comment WBC Morphology (NORMAL) Platelet Estimate (NORMAL) Platelet Morphology (NORMAL) RBC Morph Micro Appear (NORMAL) Bld Gas Analysis Time Sample Site ABG pH (7.35-7.45) ABG pCO2 (34-45) mmHg ABG pO2 (83-108) mmHg ABG HCO3 (22.0-26.0) mmol/L ABG Total CO2 (21.0-29.0) mmol/L ABG O2 Saturation (95-98) % ABG Base Excess (-2.0-3.0) mmol/L Kunal Test O2 Delivery Device O2 Liters/Min LPM Sodium (135-145) mmol/L Potassium (3.5-4.5) mmol/L Chloride (101-111) mmol/L Carbon Dioxide (21-32) mmol/L Anion Gap (6-13) BUN (6-20) mg/dL Creatinine (0.6-1.3) mg/dL Estimated GFR (MDRD) (>89) Glucose (74-104) mg/dL Calcium (8.5-10.3) mg/dL Nasal Adenovirus (PCR) NOT DETECTED Nasal B. parapertussis DNA (PCR) NOT DETECTED Nasal Coronavir 229E PCR NOT DETECTED Nasal Coronavir HKU1 PCR NOT DETECTED Nasal Coronavir NL63 PCR NOT DETECTED Nasal Coronavir OC43 PCR NOT DETECTED Nasal Enterovir/Rhinovir PCR NOT DETECTED Nasal Influenza B PCR NOT DETECTED Nasal Influenza A PCR NOT DETECTED Nasal Parainfluen 1 PCR NOT DETECTED Nasal Parainfluen 2 PCR NOT DETECTED Nasal Parainfluen 3 PCR NOT DETECTED Nasal Parainfluen 4 PCR NOT DETECTED Nasal RSV (PCR) NOT DETECTED Nasal Screen MRSA (PCR) (NEGATIVE) Nasal B.pertussis DNA PCR NOT DETECTED Nasal C.pneumoniae (PCR) NOT DETECTED Ming Human Metapneumo PCR NOT DETECTED Nasal M.pneumoniae (PCR) NOT DETECTED Nasal SARS-CoV-2 (PCR) NOT DETECTED Sepsis Event Note (H) Evaluation Possible source of Sepsis: positive Pulmonary Sepsis Criteria Sepsis Criteria: Recorded Respiratory Rate greater than 20 Assessment/Plan Problem List (1) Acute hypoxic respiratory failure: Impression: He has been sick with an upper respiratory infection for approximately a week. He presented to the walk-in clinic with an oxygen saturation of 79% on room air. He was transferred via EMS to the emergency department. His cough is improving. His respiratory panel is negative. His chest x-ray shows multifocal pneumonia. He denies any difficulty swallowing or aspiration events. I obtained a chest CT today, due to stagnation of his improvement. Results returned as multifocal PNA, cannot rule out COVID. He has had a COVID vaccine this season (October 2024), he has not had flu or RSV shot. I have repeated the viral panel again this afternoon, it is negative. This is a patient with Parkinson's disease and an episode of acute hypoxic respiratory failure secondary to multifocal pneumonia. I am treating him for community-acquired pneumonia with azithromycin and Rocephin. He will receive 3 days of azithromycin (completed 01/11) and 5 days of Rocephin (day 4/5) In addition due to the incidence of aspiration with Parkinson's disease I have added Flagyl to his coverage, will treat for 5 days. . His improvement is stagnant. I have added decadron to his treatment He was given 10mg 01/11, and have ordered 6mg daily for 5 additional days. (2) Pneumonia: Impression: Chest x-ray shows patchy bilateral opacities left greater than right. Chest CT report: Extensive somewhat geographic bilateral interstitial infiltrates with small focal areas of more confluent airspace consolidation. Findings likely represent viral pneumonitis. Differential includes Covid 19 pneumonia. Covering with CAP as well as aspiration. Completed 3 d zithromax, day 4/5 rocephin, day 4/5 flagyl. hypoxia improving. no history of underlying lung disease. Qualifiers: Laterality: bilateral Lung location: unspecified part of lung P neumonia type: due to unspecified organism Qualified Code(s): J18.9 - Pneumonia, unspecified organism (3) Parkinson disease: Impression: He is followed by Dr. Anushka Morejon of [facility]. He is stable on his current Sinemet dosing. He is acutely weak due to this infection. He has been up with help. not strong enough to go home yet. Not appropriate for OT today given his hypoxia I have spent 45 minutes in the care of this patient today. This includes time [id number], review and ordering of diagnostic imaging and laboratory studies.. Monitoring the patient's signs symptoms, evaluation of medication effectiveness and patient's response to treatment.
[2025-01-13 05:09] LABS: BASOPHILS % (AUTO) 0.1 %; HCT - HEMATOCRIT 38.4 % (42.0-52.0); HGB - HEMOGLOBIN 12.3 g/dL (14.0-18.0); LYMPHOCYTES # (AUTO) 0.8 10^3/uL (1.5-3.5); LYMPHOCYTES % (AUTO) 8.6 %; MEAN CORPUSCULAR HEMOGLOBIN 31.1 pg (27.0-31.0); MEAN PLATELET VOLUME 9.5 fL (7.4-11.4); MONOCYTES # (AUTO) 0.4 10^3/uL (0.0-1.0); MONOCYTES % (AUTO) 4.4 %; NEUTROPHILS # (AUTO) 8.3 10^3/uL (1.5-6.6); NEUTROPHILS % (AUTO) 85.3 %; PLT - PLATELET COUNT 264 10^3/uL (130-450); RED BLOOD COUNT 3.96 10^6/uL (4.70-6.10); WHITE BLOOD COUNT 9.8 x10^3/uL (4.8-10.8)
[2025-01-13 05:22] LABS: POTASSIUM 4.3 mmol/L (3.5-4.5)
[2025-01-13] MEDS: DEXAMETHASONE 4 MG/ML VIAL IVP SCH (08:07)
[2025-01-13] MEDS: CEFEPIME 2 GM VIAL IVP SCH (11:59)
--- NOTE | 2025-01-13 12:44 | PROVIDER PROGRESS NOTE ---
Subjective Prog Note Date Prog Note Date: 01/13/25 Subjective Subjective: He feels that he is better. and daughters are at the bedside. He wants to go home and is always optimistic about how things are going. He is able to eat more the last 2days. Current Medications Current Medications Current Medications: Current Medications Generic Name Dose Route Start Last Admin Trade Name Freq PRN Reason Stop Dose Admin Acetaminophen 650 mg 01/09/25 11:14 01/10/25 20:51 Acetaminophen 325 Mg Tablet PO 650 mg Q4HR PRN Administration Pain 1 to 4, or Fever Albuterol/Ipratropium 3 ml 01/09/25 12:42 01/13/25 07:19 Ipratropium/Albuterol 3 Ml Neb INH 3 ml RTQID PRN Administration Shortness of Air/Wheezing Albuterol/Ipratropium 3 ml 01/13/25 11:00 Ipratropium/Albuterol 3 Ml Neb INH RTQID REBECCA Budesonide 0.5 mg 01/10/25 19:00 01/13/25 07:19 Budesonide 0.5 Mg/2 Ml Neb INH 0.5 mg RTBID REBECCA Administration Carbidopa/Levodopa 2 tab 01/09/25 15:24 01/13/25 11:59 Carbidopa/Levodopa 25 Mg/100 Mg Tablet PO 2 tab QID REBECCA Administration Cefepime HCl 2 gm 01/13/25 11:00 01/13/25 11:59 Cefepime 2 Gm Vial IVP 2 gm BID REBECCA Administration Dexamethasone 6 mg 01/13/25 09:00 01/13/25 08:07 Dexamethasone 4 Mg/Ml Vial IVP 01/17/25 09:01 6 mg DAILY REBECCA Administration Guaifenesin 1,200 mg 01/09/25 13:00 01/13/25 08:07 Guaifenesin 600 Mg Tablet PO 1,200 mg BID REBECCA Administration Heparin Sodium (Porcine) 5,000 unit 01/09/25 21:00 01/13/25 08:07 Heparin 5,000 Unit/Ml Vial SUBQ 5,000 unit BID REBECCA Administration Metronidazole 500 mg in 100 mls @ 100 mls/hr 01/09/25 12:00 01/13/25 11:54 Flagyl 500 Mg/100 Ml IV 01/14/25 11:59 100 mls/hr Q8H REBECCA Administration Multivitamins/Minerals 1 tab 01/12/25 12:00 01/13/25 08:07 Multivitamin W/Minerals Tablet PO 1 tab DAILYWM REBECCA Administration Ondansetron HCl 4 mg 01/09/25 11:14 Ondansetron 4 Mg/2 Ml Vial IVP Q6HR PRN Nausea / Vomiting Sodium Chloride 10 ml 01/09/25 11:14 01/11/25 04:52 Sodium Chloride Flush 0.9% 10 Ml Syringe IVP 10 ml PRN PRN Administration NEEDED PER PROVIDER ORDERS Sodium Chloride 10 ml 01/09/25 17:00 01/13/25 08:17 Sodium Chloride Flush 0.9% 10 Ml Syringe IVP 10 ml 0100,0900,1700 REBECCA Administration Objective Vital Signs/Intake & Output Reviewed Vital Signs: Yes Vital Signs: Vital Signs x48h Temp Pulse Pulse Resp BP Pulse Ox O2 Flow Rate 01/13/25 12:00 36.7 C 62 20 141/78 H 97 40 01/13/25 11:00 69 18 111/77 98 40 01/13/25 10:00 71 18 135/101 H 91 L 40 01/13/25 09:00 40 01/13/25 09:00 65 16 124/73 90 L 40 01/13/25 08:00 72 18 125/72 90 L 40 01/13/25 07:28 60 20 40 01/13/25 07:20 40 01/13/25 07:00 60 18 128/67 94 40 01/13/25 06:20 40 01/13/25 06:00 52 L 18 128/67 96 40 01/13/25 05:00 40 01/13/25 05:00 48 L 14 134/77 H 92 40 Intake & Output: Intake & Output 01/10/25 01/12/25 01/12/25 01/13/25 23:59 00:59 23:59 23:59 Intake Total 1969 / 1969 1610 / 1610 1170 / 1170 440 / 440 Output Total 850 / 850 1100 / 1100 620 / 620 280 / 280 Balance 1120 / 1120 510 / 510 550 / 550 160 / 160 Objective General Appearance: positive No acute distress, Alert and Other (Appears mildly dyspneic.) ENT: positive ENT inspection nml Neck: positive Nml inspection Respiratory: positive Rhonchi (occasional L>R) Cardiovascular: positive Regular rate & rhythm Abdomen: positive No distention Skin: positive Color nml Extremities: positive Non-tender and No pedal edema Neurologic/Psychiatric: positive Oriented x3 Lab Results 01/13/25 04:51 01/13/25 04:51 Other Labs: Lab Results x24hrs 01/13/25 Range/Units 04:51 WBC 9.8 (4.8-10.8) x10^3/uL RBC 3.96 L (4.70-6.10) 10^6/uL Hgb 12.3 L (14.0-18.0) g/dL Hct 38.4 L (42.0-52.0) % MCV 97.0 H (80.0-94.0) fL MCH 31.1 H (27.0-31.0) pg MCHC 32.0 (32.0-36.0) g/dL RDW 13.0 (12.0-15.0) % Plt Count 264 (130-450) 10^3/uL MPV 9.5 (7.4-11.4) fL Neut # (Auto) 8.3 H (1.5-6.6) 10^3/uL Lymph # (Auto) 0.8 L (1.5-3.5) 10^3/uL [place] # (Auto) 0.4 (0.0-1.0) 10^3/uL Eos # (Auto) 0.0 (0.0-0.7) 10^3/uL Baso # (Auto) 0.0 (0.0-0.1) 10^3/uL Absolute Nucleated RBC 0.00 x10^3/uL Nucleated RBC % 0.0 /100WBC Sodium 144 (135-145) mmol/L Potassium 4.3 (3.5-4.5) mmol/L Chloride 112 H (101-111) mmol/L Carbon Dioxide 24 (21-32) mmol/L Anion Gap 8.0 (6-13) BUN 25 H (6-20) mg/dL Creatinine 1.0 (0.6-1.3) mg/dL Estimated GFR (MDRD) 73 L (>89) Glucose 147 H (74-104) mg/dL Calcium 8.0 L (8.5-10.3) mg/dL Sepsis Event Note (H) Evaluation Possible source of Sepsis: positive Pulmonary Sepsis Criteria Sepsis Criteria: Recorded Respiratory Rate greater than 20 Assessment/Plan Problem List (1) Acute hypoxic respiratory failure: Impression: He has been sick with an upper respiratory infection for approximately a week prior to presentation. he had been initially fatigued then progressed to cough and chest congestion which worsened. He presented to the walk-in clinic with an oxygen saturation of 79% on room air. He was transferred via EMS to the emergency department. His cough is improving. His respiratory panel is negative. His chest x-ray shows multifocal pneumonia. He denies any difficulty swallowing or aspiration events. I obtained a chest CT , due to stagnation of his improvement. Results returned as multifocal PNA, cannot rule out COVID. He has had a COVID vaccine this season (October 2024), he has not had flu or RSV shot. I have repeated the viral panel again, it is negative. This is a patient with Parkinson's disease and an episode of acute hypoxic respiratory failure secondary to multifocal pneumonia. I am treating him for community-acquired pneumonia with azithromycin and Rocephin. He will receive 3 days of azithromycin (completed 01/11) and 5 days of Rocephin In addition due to the incidence of aspiration with Parkinson's disease I have added Flagyl to his coverage, will treat for 5 days. . His improvement is stagnant. I have added decadron to his treatment He was given 10mg 01/11, and have ordered 6mg daily for 5 additional days. Given his failure to improve, am now treating with Cefepime to cover for Pseudomonas. His WBC is trending up, which is a positive, given that WBC has been abnormally low. 2 Laboratory Tests 01/10/25 01/11/25 01/12/25 04:49 05:30 04:26 WBC 4.3 L 4.7 L 4.5 L 01/13/25 04:51 WBC 9.8 (2) Pneumonia: Impression: Chest x-ray shows patchy bilateral opacities left greater than right. Chest CT report: Extensive somewhat geographic bilateral interstitial infiltrates with small focal areas of more confluent airspace consolidation. Findings likely represent viral pneumonitis. Differential includes Covid 19 pneumonia. Covering with CAP as well as aspiration. Completed 3 d zithromax, completed 5d rocephin, flagyl finished 01/14. starting cefepime AM 01/13. Will see if clinical course changes.. hypoxia improving. slowly,. much of today has been on high flow 40L-80% no history of underlying lung disease. Qualifiers: Laterality: bilateral Lung location: unspecified part of lung P neumonia type: due to unspecified organism Qualified Code(s): J18.9 - Pneumonia, unspecified organism (3) Parkinson disease: Impression: He is followed by Dr. Anushka Morejon of [facility]. He is stable on his current Sinemet dosing. He is acutely weak due to this infection. He has been up with help. not strong enough to go home yet. I have spent 36 minutes in the care of this patient today. This includes time [id number], review and ordering of diagnostic imaging and laboratory studies.. Monitoring the patient's signs symptoms, evaluation of medication effectiveness and patient's response to treatment.
[2025-01-13] MEDS: IPRATROPIUM/ALBUTEROL 3 ML NEB INH SCH (14:38)
[2025-01-13 18:38] LABS: BILIRUBIN,URINE NEGATIVE (NEGATIVE); GLUCOSE, URINE (UA) NEGATIVE (NEGATIVE); KETONES,URINE (UA) NEGATIVE (NEGATIVE); LEUKOCYTE ESTERASE, URINE NEGATIVE (NEGATIVE); NITRITE,URINE NEGATIVE (NEGATIVE); OCCULT BLOOD,URINE MODERATE (NEGATIVE); PROTEIN,URINE TRACE mg/dL (NEGATIVE); UROBILINOGEN,URINE 0.2 (NORMAL) E.U./dL (NORMAL)
[2025-01-13 19:05] LABS: BACTERIA,URINE Rare /HPF (None Seen); CLARITY,URINE CLEAR (CLEAR); SQUAMOUS EPITHELIAL CELL,UR RARE Squamous (<= Few); WBC,URINE 0-3 /HPF (0-3)
[2025-01-14 05:13] LABS: BASOPHILS % (AUTO) 0.1 %; HCT - HEMATOCRIT 38.4 % (42.0-52.0); HGB - HEMOGLOBIN 12.5 g/dL (14.0-18.0); LYMPHOCYTES # (AUTO) 0.8 10^3/uL (1.5-3.5); LYMPHOCYTES % (AUTO) 7.8 %; MEAN CORPUSCULAR HEMOGLOBIN 31.5 pg (27.0-31.0); MEAN CORPUSCULAR HGB CONC 32.6 g/dL (32.0-36.0); MEAN CORPUSCULAR VOLUME 96.7 fL (80.0-94.0); MEAN PLATELET VOLUME 9.2 fL (7.4-11.4); MONOCYTES # (AUTO) 0.5 10^3/uL (0.0-1.0); MONOCYTES % (AUTO) 5.4 %; NEUTROPHILS # (AUTO) 8.4 10^3/uL (1.5-6.6); NEUTROPHILS % (AUTO) 85.2 %; PLT - PLATELET COUNT 230 10^3/uL (130-450); RED BLOOD COUNT 3.97 10^6/uL (4.70-6.10); RED CELL DISTRIBUTION WIDTH 12.8 % (12.0-15.0); WHITE BLOOD COUNT 9.9 x10^3/uL (4.8-10.8)
[2025-01-14 05:28] LABS: CALCIUM 8.1 mg/dL (8.5-10.3)
[2025-01-14] MEDS: VANCOMYCIN INJ 2 GM in SODIUM CHLORIDE 0.9% 500 ML IV ONE (11:38)
--- NOTE | 2025-01-14 15:22 | PROVIDER PROGRESS NOTE ---
Subjective Prog Note Date Prog Note Date: 01/14/25 Subjective Pt reports feeling: No change Current Medications Current Medications Current Medications: Current Medications Generic Name Dose Route Start Last Admin Trade Name Shankar PRN Reason Stop Dose Admin Acetaminophen 650 mg 01/09/25 11:14 01/10/25 20:51 Acetaminophen 325 Mg Tablet PO 650 mg Q4HR PRN Administration Pain 1 to 4, or Fever Albuterol/Ipratropium 3 ml 01/09/25 12:42 01/13/25 07:19 Ipratropium/Albuterol 3 Ml Neb INH 3 ml RTQID PRN Administration Shortness of Air/Wheezing Albuterol/Ipratropium 3 ml 01/13/25 11:00 01/14/25 11:28 Ipratropium/Albuterol 3 Ml Neb INH 3 ml RTQID REBECCA Administration Budesonide 0.5 mg 01/10/25 19:00 01/14/25 07:54 Budesonide 0.5 Mg/2 Ml Neb INH 0.5 mg RTBID REBECCA Administration Carbidopa/Levodopa 2 tab 01/09/25 15:24 01/14/25 11:56 Carbidopa/Levodopa 25 Mg/100 Mg Tablet PO 2 tab QID REBECCA Administration Cefepime HCl 2 gm 01/13/25 11:00 01/14/25 08:23 Cefepime 2 Gm Vial IVP 2 gm BID REBECCA Administration Dexamethasone 6 mg 01/13/25 09:00 01/14/25 08:22 Dexamethasone 4 Mg/Ml Vial IVP 01/17/25 09:01 6 mg DAILY REBECCA Administration Guaifenesin 1,200 mg 01/09/25 13:00 01/14/25 08:22 Guaifenesin 600 Mg Tablet PO 1,200 mg BID REBECCA Administration Heparin Sodium (Porcine) 5,000 unit 01/09/25 21:00 01/14/25 08:23 Heparin 5,000 Unit/Ml Vial SUBQ 5,000 unit BID REBECCA Administration Vancomycin HCl 1 gm/ 250 mls @ 167 mls/hr 01/15/25 12:00 Vancomycin HCl 250 mg/ Sodium IV Chloride Q24H REBECCA Multivitamins/Minerals 1 tab 01/12/25 12:00 01/14/25 08:22 Multivitamin W/Minerals Tablet PO 1 tab DAILYWM REBECCA Administration Ondansetron HCl 4 mg 01/09/25 11:14 Ondansetron 4 Mg/2 Ml Vial IVP Q6HR PRN Nausea / Vomiting Sodium Chloride 10 ml 01/09/25 11:14 01/11/25 04:52 Sodium Chloride Flush 0.9% 10 Ml Syringe IVP 10 ml PRN PRN Administration NEEDED PER PROVIDER ORDERS Sodium Chloride 10 ml 01/09/25 17:00 01/14/25 08:25 Sodium Chloride Flush 0.9% 10 Ml Syringe IVP 10 ml 0100,0900,1700 REBECCA Administration Objective Vital Signs/Intake & Output Reviewed Vital Signs: Yes Vital Signs: Vital Signs x48h Temp Pulse Pulse Resp BP Pulse Ox O2 Flow Rate 01/14/25 15:00 68 24 132/79 H 92 40 01/14/25 14:00 70 20 137/85 H 91 L 40 01/14/25 13:00 70 18 132/66 H 95 40 01/14/25 12:00 37.0 C 76 24 123/73 90 L 40 01/14/25 11:30 40 01/14/25 11:30 67 18 01/14/25 11:00 72 13 132/66 H 94 40 01/14/25 10:00 66 17 120/69 92 40 01/14/25 09:00 69 18 108/66 92 40 01/14/25 08:00 36.8 C 62 19 141/85 H 95 40 01/14/25 07:59 62 22 40 Intake & Output: Intake & Output 01/12/25 01/12/25 01/13/25 01/14/25 00:59 23:59 23:59 23:59 Intake Total 1610 / 1610 1170 / 1170 880 / 880 1240 / 1240 Output Total 1100 / 1100 620 / 620 581 / 581 515 / 515 Balance 510 / 510 550 / 550 299 / 299 725 / 725 Objective General Appearance: positive No acute distress, Alert and Other (Mild conversational dyspnea) ENT: positive ENT inspection nml Neck: positive Nml inspection Respiratory: positive Rhonchi Cardiovascular: positive Regular rate & rhythm Abdomen: positive No distention Skin: positive Color nml Extremities: positive Non-tender and No pedal edema Neurologic/Psychiatric: positive Oriented x3 Lab Results 01/14/25 04:59 01/14/25 04:59 Other Labs: Lab Results x24hrs 01/14/25 01/13/25 Range/Units 04:59 18:20 WBC 9.9 (4.8-10.8) x10^3/uL RBC 3.97 L (4.70-6.10) 10^6/uL Hgb 12.5 L (14.0-18.0) g/dL Hct 38.4 L (42.0-52.0) % MCV 96.7 H (80.0-94.0) fL MCH 31.5 H (27.0-31.0) pg MCHC 32.6 (32.0-36.0) g/dL RDW 12.8 (12.0-15.0) % Plt Count 230 (130-450) 10^3/uL MPV 9.2 (7.4-11.4) fL Neut # (Auto) 8.4 H (1.5-6.6) 10^3/uL Lymph # (Auto) 0.8 L (1.5-3.5) 10^3/uL [place] # (Auto) 0.5 (0.0-1.0) 10^3/uL Eos # (Auto) 0.0 (0.0-0.7) 10^3/uL Baso # (Auto) 0.0 (0.0-0.1) 10^3/uL Absolute Nucleated RBC 0.00 x10^3/uL Nucleated RBC % 0.0 /100WBC Sodium 142 (135-145) mmol/L Potassium 4.0 (3.5-4.5) mmol/L Chloride 110 (101-111) mmol/L Carbon Dioxide 24 (21-32) mmol/L Anion Gap 8.0 (6-13) BUN 24 H (6-20) mg/dL Creatinine 1.0 (0.6-1.3) mg/dL Estimated GFR (MDRD) 73 L (>89) Glucose 122 H (74-104) mg/dL Calcium 8.1 L (8.5-10.3) mg/dL Urine Color YELLOW Urine Clarity CLEAR (CLEAR) Urine pH 6.0 (5.0-7.5) PH Ur Specific [place] 1.025 (1.002-1.030) Urine Protein TRACE (NEGATIVE) mg/dL Urine Glucose (UA) NEGATIVE (NEGATIVE) mg/dL Urine Ketones NEGATIVE (NEGATIVE) mg/dL Urine Occult Blood MODERATE H (NEGATIVE) Urine Nitrite NEGATIVE (NEGATIVE) Urine Bilirubin NEGATIVE (NEGATIVE) Urine Urobilinogen 0.2 (NORMAL) (NORMAL) E.U./dL Ur Leukocyte Esterase NEGATIVE (NEGATIVE) Urine RBC 11-25 H (0-5) /HPF Urine WBC 0-3 (0-3) /HPF Ur Squamous Epith Cells RARE Squamous (<= Few) Urine Bacteria Rare (None Seen) /HPF Sepsis Event Note (H) Evaluation Possible source of Sepsis: positive Pulmonary Sepsis Criteria Sepsis Criteria: Recorded Respiratory Rate greater than 20 Assessment/Plan Problem List (1) Acute hypoxic respiratory failure: Impression: Remains on high flow 70%, 40 L Has had respiratory symptoms since a week prior to presentation. Chest x-ray shows multifocal pneumonia. No concern for aspiration event. Negative viral panel. He completed a 5-day course of Rocephin and a 3-day course of azithromycin. Due to lack of clinical improvement, he was started on a course of Decadron (2) Pneumonia: Impression: CT chest shows concern for viral pneumonitis, respiratory viral panel negative. Completed 3 days Zithromax, 5 days Rocephin. Sputum cultures are showing staph warneri, which she is resistant to multiple drugs. He was started on vancomycin yesterday as a one-time dose, I have ordered a continued course of vancomycin. Will continue his cefepime for now for pseudomonal coverage, will de-escalate this when I see a clinical improvement. Monitoring kidney function given antibiotic choice to monitor for toxicity. Already receiving Mucinex 1200 mg twice daily and we are encouraging aggressive pulmonary hygiene Qualifiers: Laterality: bilateral Lung location: unspecified part of lung P neumonia type: due to unspecified organism Qualified Code(s): J18.9 - Pneumonia, unspecified organism (3) Parkinson disease: Impression: He is followed by Dr. Anushka Morejon of [facility]. He is stable on his current Sinemet dosing. He is acutely weak due to this infection. He has been up with help. not strong enough to go home yet.
[2025-01-15 08:17] LABS: HCT - HEMATOCRIT 38.9 % (42.0-52.0); HGB - HEMOGLOBIN 12.9 g/dL (14.0-18.0); MEAN CORPUSCULAR HEMOGLOBIN 31.5 pg (27.0-31.0); MEAN CORPUSCULAR HGB CONC 33.2 g/dL (32.0-36.0); MEAN CORPUSCULAR VOLUME 94.9 fL (80.0-94.0); MEAN PLATELET VOLUME 9.3 fL (7.4-11.4); RED BLOOD COUNT 4.1 10^6/uL (4.70-6.10); RED CELL DISTRIBUTION WIDTH 12.7 % (12.0-15.0); WHITE BLOOD COUNT 11.5 x10^3/uL (4.8-10.8)
[2025-01-15 08:31] LABS: CALCIUM 8.5 mg/dL (8.5-10.3); CREATININE 0.9 mg/dL (0.6-1.3); POTASSIUM 3.8 mmol/L (3.5-4.5)
[2025-01-15] MEDS: VANCOMYCIN INJ 1 GM in SODIUM CHLORIDE 0.9% 250 ML IV SCH (10:10)
[2025-01-15] MEDS: FUROSEMIDE 20 MG/2 ML VIAL IVP SCH (11:41)
[2025-01-15] MEDS ORDERED: VANCOMYCIN INJ 1 GM, VANCOMYCIN INJ 250 MG in SODIUM CHLORIDE 0.9% 250 ML IV SCH (12:00)
--- NOTE | 2025-01-15 14:32 | PROVIDER PROGRESS NOTE ---
Subjective Prog Note Date Prog Note Date: 01/15/25 Subjective Pt reports feeling: Improved Current Medications Current Medications Current Medications: Current Medications Generic Name Dose Route Start Last Admin Trade Name Shankar PRN Reason Stop Dose Admin Acetaminophen 650 mg 01/09/25 11:14 01/10/25 20:51 Acetaminophen 325 Mg Tablet PO 650 mg Q4HR PRN Administration Pain 1 to 4, or Fever Albuterol/Ipratropium 3 ml 01/09/25 12:42 01/13/25 07:19 Ipratropium/Albuterol 3 Ml Neb INH 3 ml RTQID PRN Administration Shortness of Air/Wheezing Albuterol/Ipratropium 3 ml 01/13/25 11:00 01/15/25 12:41 Ipratropium/Albuterol 3 Ml Neb INH 3 ml RTQID REBECCA Administration Budesonide 0.5 mg 01/10/25 19:00 01/15/25 08:54 Budesonide 0.5 Mg/2 Ml Neb INH 0.5 mg RTBID REBECCA Administration Carbidopa/Levodopa 2 tab 01/09/25 15:24 01/15/25 12:18 Carbidopa/Levodopa 25 Mg/100 Mg Tablet PO 2 tab QID REBECCA Administration Dexamethasone 6 mg 01/13/25 09:00 01/15/25 08:20 Dexamethasone 4 Mg/Ml Vial IVP 01/17/25 09:01 6 mg DAILY REBECCA Administration Furosemide 20 mg 01/15/25 11:00 01/15/25 11:41 Furosemide 20 Mg/2 Ml Vial IVP 20 mg DAILY REBECCA Administration Guaifenesin 1,200 mg 01/09/25 13:00 01/15/25 08:20 Guaifenesin 600 Mg Tablet PO 1,200 mg BID REBECCA Administration Heparin Sodium (Porcine) 5,000 unit 01/09/25 21:00 01/15/25 08:21 Heparin 5,000 Unit/Ml Vial SUBQ 5,000 unit BID REBECCA Administration Vancomycin HCl 1 gm/ Sodium 250 mls @ 167 mls/hr 01/15/25 10:00 01/15/25 11:51 Chloride IV Infused Q12H REBECCA Infusion Multivitamins/Minerals 1 tab 01/12/25 12:00 01/15/25 08:19 Multivitamin W/Minerals Tablet PO 1 tab DAILYWM REBECCA Administration Ondansetron HCl 4 mg 01/09/25 11:14 Ondansetron 4 Mg/2 Ml Vial IVP Q6HR PRN Nausea / Vomiting Sodium Chloride 10 ml 01/09/25 11:14 01/11/25 04:52 Sodium Chloride Flush 0.9% 10 Ml Syringe IVP 10 ml PRN PRN Administration NEEDED PER PROVIDER ORDERS Sodium Chloride 10 ml 01/09/25 17:00 01/15/25 08:21 Sodium Chloride Flush 0.9% 10 Ml Syringe IVP 10 ml 0100,0900,1700 REBECCA Administration Objective Vital Signs/Intake & Output Reviewed Vital Signs: Yes Vital Signs: Vital Signs x48h Temp Pulse Pulse Resp BP Pulse Ox O2 Flow Rate 01/15/25 14:00 77 15 97/65 93 40 01/15/25 13:00 75 17 109/77 96 40 01/15/25 12:42 68 18 40 01/15/25 12:27 40 01/15/25 12:00 37.0 C 76 20 113/83 94 40 01/15/25 11:00 74 14 102/79 94 40 01/15/25 10:00 77 17 117/74 93 40 01/15/25 09:15 40 01/15/25 09:00 71 12 108/73 98 40 01/15/25 08:57 74 16 40 01/15/25 08:00 36.8 C 66 13 121/79 95 40 01/15/25 07:00 62 15 125/76 90 L 40 Intake & Output: Intake & Output 01/12/25 01/13/25 01/14/25 01/15/25 23:59 23:59 23:59 23:59 Intake Total 1170 / 1170 880 / 880 1360 / 1360 850 / 850 Output Total 620 / 620 581 / 581 1040 / 1040 855 / 855 Balance 550 / 550 299 / 299 320 / 320 -5 / -5 Objective General Appearance: positive No acute distress, Alert and Other (Mild conversational dyspnea) ENT: positive ENT inspection nml Neck: positive Nml inspection Respiratory: positive Rhonchi Cardiovascular: positive Regular rate & rhythm Abdomen: positive No distention Skin: positive Color nml Extremities: positive Non-tender and No pedal edema Neurologic/Psychiatric: positive Oriented x3 Lab Results 01/15/25 08:10 01/15/25 08:10 Other Labs: Lab Results x24hrs 01/15/25 Range/Units 08:10 WBC 11.5 H (4.8-10.8) x10^3/uL RBC 4.10 L (4.70-6.10) 10^6/uL Hgb 12.9 L (14.0-18.0) g/dL Hct 38.9 L (42.0-52.0) % MCV 94.9 H (80.0-94.0) fL MCH 31.5 H (27.0-31.0) pg MCHC 33.2 (32.0-36.0) g/dL RDW 12.7 (12.0-15.0) % Plt Count 245 (130-450) 10^3/uL MPV 9.3 (7.4-11.4) fL Sodium 141 (135-145) mmol/L Potassium 3.8 (3.5-4.5) mmol/L Chloride 108 (101-111) mmol/L Carbon Dioxide 25 (21-32) mmol/L Anion Gap 8.0 (6-13) BUN 20 (6-20) mg/dL Creatinine 0.9 (0.6-1.3) mg/dL Estimated GFR (MDRD) 82 L (>89) Glucose 101 (74-104) mg/dL Calcium 8.5 (8.5-10.3) mg/dL Sepsis Event Note (H) Evaluation Possible source of Sepsis: positive Pulmonary Sepsis Criteria Sepsis Criteria: Recorded Respiratory Rate greater than 20 Assessment/Plan Problem List (1) Acute hypoxic respiratory failure: Impression: 01/15: High flow nasal cannula has been weaned down to 40 L / 50%. I am starting him on Lasix 20 mg IV push daily to see if this helps his respiratory status improved. I am continuing his twice daily guaifenesin Has had respiratory symptoms since a week prior to presentation. Chest x-ray shows multifocal pneumonia. No concern for aspiration event. Negative viral panel. He completed a 5-day course of Rocephin and a 3-day course of azithromycin. Due to lack of clinical improvement, he was started on a course of Decadron (2) Pneumonia: Impression: CT chest shows concern for viral pneumonitis, respiratory viral panel negative. Completed 3 days Zithromax, 5 days Rocephin. Sputum cultures are showing staph warneri, which is resistant to multiple drugs. I am continuing his vancomycin while monitoring renal function and Vanco troughs for toxicity. I have discontinued his cefepime Qualifiers: Laterality: bilateral Lung location: unspecified part of lung P neumonia type: due to unspecified organism Qualified Code(s): J18.9 - Pneumonia, unspecified organism (3) Parkinson disease: Impression: He is followed by Dr. Anushka Morejon of [facility]. He is stable on his current Sinemet dosing. He is acutely weak due to this infection. He has been up with help. not strong enough to go home yet.
[2025-01-16 08:26] LABS: HGB - HEMOGLOBIN 13.7 g/dL (14.0-18.0); MEAN CORPUSCULAR HEMOGLOBIN 31.9 pg (27.0-31.0); MEAN CORPUSCULAR HGB CONC 33.4 g/dL (32.0-36.0); MEAN CORPUSCULAR VOLUME 95.3 fL (80.0-94.0); MEAN PLATELET VOLUME 9.5 fL (7.4-11.4); RED BLOOD COUNT 4.3 10^6/uL (4.70-6.10); RED CELL DISTRIBUTION WIDTH 12.6 % (12.0-15.0); WHITE BLOOD COUNT 13.2 x10^3/uL (4.8-10.8)
[2025-01-16 08:49] LABS: TROPONIN I HIGH SENSITIVITY 9.1 ng/L (2.3-19.7)
--- NOTE | 2025-01-16 12:56 | PROVIDER PROGRESS NOTE ---
Subjective Prog Note Date Prog Note Date: 01/16/25 Subjective Pt reports feeling: No change Current Medications Current Medications Current Medications: Current Medications Generic Name Dose Route Start Last Admin Trade Name Shankar PRN Reason Stop Dose Admin Acetaminophen 650 mg 01/09/25 11:14 01/10/25 20:51 Acetaminophen 325 Mg Tablet PO 650 mg Q4HR PRN Administration Pain 1 to 4, or Fever Albuterol/Ipratropium 3 ml 01/09/25 12:42 01/13/25 07:19 Ipratropium/Albuterol 3 Ml Neb INH 3 ml RTQID PRN Administration Shortness of Air/Wheezing Albuterol/Ipratropium 3 ml 01/13/25 11:00 01/16/25 07:06 Ipratropium/Albuterol 3 Ml Neb INH 3 ml RTQID REBECCA Administration Budesonide 0.5 mg 01/10/25 19:00 01/16/25 07:06 Budesonide 0.5 Mg/2 Ml Neb INH 0.5 mg RTBID REBECCA Administration Carbidopa/Levodopa 2 tab 01/09/25 15:24 01/16/25 12:05 Carbidopa/Levodopa 25 Mg/100 Mg Tablet PO 2 tab QID REBECCA Administration Dexamethasone 6 mg 01/13/25 09:00 01/16/25 08:12 Dexamethasone 4 Mg/Ml Vial IVP 01/17/25 09:01 6 mg DAILY REBECCA Administration Furosemide 20 mg 01/15/25 11:00 01/16/25 08:12 Furosemide 20 Mg/2 Ml Vial IVP 20 mg DAILY REBECCA Administration Guaifenesin 1,200 mg 01/09/25 13:00 01/16/25 08:12 Guaifenesin 600 Mg Tablet PO 1,200 mg BID REBECCA Administration Heparin Sodium (Porcine) 5,000 unit 01/09/25 21:00 01/16/25 08:12 Heparin 5,000 Unit/Ml Vial SUBQ 5,000 unit BID REBECCA Administration Vancomycin HCl 1 gm/ Sodium 250 mls @ 167 mls/hr 01/15/25 10:00 01/16/25 12:08 Chloride IV Infused Q12H REBECCA Infusion Multivitamins/Minerals 1 tab 01/12/25 12:00 01/16/25 08:12 Multivitamin W/Minerals Tablet PO 1 tab DAILYWM REBECCA Administration Ondansetron HCl 4 mg 01/09/25 11:14 Ondansetron 4 Mg/2 Ml Vial IVP Q6HR PRN Nausea / Vomiting Sodium Chloride 10 ml 01/09/25 11:14 01/11/25 04:52 Sodium Chloride Flush 0.9% 10 Ml Syringe IVP 10 ml PRN PRN Administration NEEDED PER PROVIDER ORDERS Sodium Chloride 10 ml 01/09/25 17:00 01/16/25 08:13 Sodium Chloride Flush 0.9% 10 Ml Syringe IVP 10 ml 0100,0900,1700 REBECCA Administration Objective Vital Signs/Intake & Output Reviewed Vital Signs: Yes Vital Signs: Vital Signs x48h Temp Pulse Pulse Resp BP Pulse Ox O2 Flow Rate 01/16/25 12:00 36.8 C 01/16/25 12:00 73 26 H 106/55 L 92 25 01/16/25 11:00 68 18 126/76 93 5 01/16/25 10:00 81 19 109/73 92 25 01/16/25 09:00 86 20 86/58 L 92 25 01/16/25 08:00 36.5 C 77 22 101/76 93 25 01/16/25 07:08 25 01/16/25 07:08 70 19 01/16/25 07:00 68 21 97/54 L 97 25 01/16/25 06:00 68 16 138/91 H 91 L 25 01/16/25 05:00 36.6 C 80 15 126/73 90 L 25 Intake & Output: Intake & Output 01/13/25 01/14/25 01/15/25 01/16/25 23:59 23:59 23:59 23:59 Intake Total 880 / 880 1360 / 1360 1340 / 1340 490 / 490 Output Total 581 / 581 1040 / 1040 1405 / 1405 1050 / 1050 Balance 299 / 299 320 / 320 -65 / -65 -560 / -560 Objective General Appearance: positive No acute distress, Alert and Other (Mild conversational dyspnea) ENT: positive ENT inspection nml Neck: positive Nml inspection Respiratory: positive Rhonchi Cardiovascular: positive Regular rate & rhythm Abdomen: positive No distention Skin: positive Color nml Extremities: positive Non-tender and No pedal edema Neurologic/Psychiatric: positive Oriented x3 Lab Results 01/16/25 08:04 01/15/25 08:10 Other Labs: Lab Results x24hrs 01/16/25 Range/Units 08:04 WBC 13.2 H (4.8-10.8) x10^3/uL RBC 4.30 L (4.70-6.10) 10^6/uL Hgb 13.7 L (14.0-18.0) g/dL Hct 41.0 L (42.0-52.0) % MCV 95.3 H (80.0-94.0) fL MCH 31.9 H (27.0-31.0) pg MCHC 33.4 (32.0-36.0) g/dL RDW 12.6 (12.0-15.0) % Plt Count 274 (130-450) 10^3/uL MPV 9.5 (7.4-11.4) fL Magnesium 2.0 (1.7-2.3) mg/dL Troponin I High Sens 9.1 (2.3-19.7) ng/L Sepsis Event Note (H) Evaluation Possible source of Sepsis: positive Pulmonary Sepsis Criteria Sepsis Criteria: Recorded Respiratory Rate greater than 20 Assessment/Plan Problem List (1) Acute hypoxic respiratory failure: Impression: 01/16: Weaned down to 5 L BNC at time of my interview. I am continuing his Lasix 20 mg IV push daily with daily BMP to monitor for toxicity. Antibiotics as below. Out of ICU today 01/15: High flow nasal cannula has been weaned down to 40 L / 50%. I am starting him on Lasix 20 mg IV push daily to see if this helps his respiratory status improved. I am continuing his twice daily guaifenesin Has had respiratory symptoms since a week prior to presentation. Chest x-ray shows multifocal pneumonia. No concern for aspiration event. Negative viral panel. He completed a 5-day course of Rocephin and a 3-day course of azithromycin. Due to lack of clinical improvement, he was started on a course of Decadron (2) Pneumonia: Impression: CT chest shows concern for viral pneumonitis, respiratory viral panel negative. Completed 3 days Zithromax, 5 days Rocephin. Sputum cultures are showing staph warneri, which is resistant to multiple drugs. I am continuing his vancomycin while monitoring renal function and Vanco troughs for toxicity. I have discontinued his cefepime 01/16/2025: Day 3 of vancomycin. Productive cough. Continue vancomycin while monitoring for renal toxicity. Antibiotic course should be 5 to 7 days. Will consider shorter course if on day 5 he has been afebrile x 48 hours and negative procalcitonin Qualifiers: Laterality: bilateral Lung location: unspecified part of lung P neumonia type: due to unspecified organism Qualified Code(s): J18.9 - Pneumonia, unspecified organism (3) Parkinson disease: Impression: He is followed by Dr. Anushka Morejon of [facility]. He is stable on his current Sinemet dosing. He is acutely weak due to this infection. He has been up with help. not strong enough to go home yet.
--- NOTE | 2025-01-16 15:07 | OT Plan of Care ---
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 Pt sent from the walk-in clinic for increasing shortness of breath over the past several days. Oxygen saturation at the walk-in clinic was 79% on room air. Chest x-ray there which was consistent with multifocal pneumonia, combined with the hypoxia. OT re- eval s/p Tx to ICU for O2 requirements with HFNC - Weaned to NC. Met sitting in chair, A&Ox4, willing to participate with therapy. Met on 5L NC O2- Spo2 93% at rest; desat to 88% with mobility; Recovery to 91% with PLB and rest. Educated on use of IS Fair understanding. Pt performed sit to stand MIN A, and ambulation 20ft bed to chair MIN A using RW shuffling, forward posture however family reporting this is baseline mobility. Cues for safety and processing of mobility. Currently MIN A UB/LB ADL with full set up and increased time. Commode for toileting with nursing rec. Overall presents with decreased endurance, activity tolerance and ADL status. Will benefit from cont OT services during acute stay. Rec d/c to SNF at this time however, if pt is to go home rec 24hr hands on assist for mobility/ADL's and HHOT services for progression of indp and safety. -Activities of Daily Living Improve Upper Extremity Dressing to:: Modified Independent Improve Lower Extremity Dressing to:: Modified Independent Improve Grooming/Hygiene to:: Modified Independent Improve Bathing to:: Modified Independent Improve Toileting to:: Modified Independent OT Inpatient Plan PLAN Treatment Frequency: 1x/day Duration: Until discharge -Discharge Recommendations Discharge Location: [facility] Facility Recommended Equipment: Raised Toilet Seat, Commode, Grab bars, Shower/bath chair and Adaptive Self Care Devices Transport Needs at Discharge: B.L.S Comment: Family well educated on necessary DME for home D/c
--- NOTE | 2025-01-16 15:26 | PT Plan of Care ---
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 Pt admitted with PNA and initially on 6L O2. Pt then transferred to ICU and placed on hi-flow. Limited to chair transfers with nsg over the last 2 days d/t desat with activity. Upon PT eval today, pt now on 5L, sats 90-93% at rest. STS transfer w/ FWW and minAx1, able to amb x20' in room with FWW and min to modAx1. Desats to 87% with ambulation but able to recover with seated PLB in <1 min. Pt's pulmonary function and oxygenation are much improved and per pt and pt's dtrs (present for much of PT eval), his mobility is very close to baseline. PT rec continued daily transfer to chair for all meals and standing marches with RT and nsg assist to improve SpO2 with activity. Pt will benefit from continued PT in acute setting to increased amb distance and progress safety transfers and gait. When medically clear, PT rec dc to SNF given O2 needs and current mobility impairments. Pt and family are eager to dc home and are aware pt will need 24/7 care and physical assist for all mobility and ADLs. If pt does dc home he will need HHPT/OT/RN/bathaide. GOALS Improve supine to sit to:: Modified Independent Improve sit to stand to:: Modified Independent Improve pivot transfer ability to:: Modified Independent Improve sit to supine to:: Modified Independent Improve gait ability to:: CGA Advance Assistive Device to:: Front Wheeled Walker Increase distance walked to (in feet):: 50 PLAN Frequency: 1-2x/day Duration: Until goals are met DISCHARGE RECOMMENDATIONS Discharge Location: [facility] Facility Support/Services Needed: HH vs SNF Transport Needs at Discharge: Wheelchair van
[2025-01-17 09:50] LABS: VANCOMYCIN,TROUGH 13.9 ug/mL
[2025-01-17 10:25] LABS: BASOPHILS % (AUTO) 0.1 %; EOSINOPHILS % (AUTO) 0.1 %; LYMPHOCYTES # (AUTO) 0.5 10^3/uL (1.5-3.5); LYMPHOCYTES % (AUTO) 4.5 %; MEAN CORPUSCULAR HEMOGLOBIN 31.9 pg (27.0-31.0); MEAN CORPUSCULAR HGB CONC 33.3 g/dL (32.0-36.0); MEAN CORPUSCULAR VOLUME 95.6 fL (80.0-94.0); MEAN PLATELET VOLUME 9.4 fL (7.4-11.4); MONOCYTES # (AUTO) 0.7 10^3/uL (0.0-1.0); MONOCYTES % (AUTO) 5.9 %; NEUTROPHILS % (AUTO) 87.2 %; PLT - PLATELET COUNT 248 10^3/uL (130-450); RED BLOOD COUNT 4.08 10^6/uL (4.70-6.10); RED CELL DISTRIBUTION WIDTH 12.6 % (12.0-15.0); WHITE BLOOD COUNT 11.5 x10^3/uL (4.8-10.8)
[2025-01-17 10:38] LABS: CALCIUM 8.5 mg/dL (8.5-10.3); CREATININE 1.1 mg/dL (0.6-1.3); POTASSIUM 3.9 mmol/L (3.5-4.5)
--- NOTE | 2025-01-17 14:25 | PHARMACY PROGRESS NOTE ---
Vancomycin Therapy Monitoring Patient Information Vancomycin Pt Height (inches): 65 Vancomycin Patient Weight (kg): 85 Vanco Rx Serum Creatinine (mg/dL): 1.1 Vancomycin Therapy Calculated Creatinine Cl (ml/min): 51 Vancomycin Therapy Goals Vancomycin Target Range: Vancomycin AUC Target Range 400-600 mcg*h/ml Plan: Current Vancomycin Maintenance Regimen (if applicable): 1000 MG IV EVERY 12 HOURS Pharmacy recommendation: Continue current regimen (CALCULATED AUC/MESSI IS 568 MCG*HR/ML, WITHIN TARGET RANGE)
--- NOTE | 2025-01-17 14:57 | PROVIDER PROGRESS NOTE ---
Subjective Prog Note Date Prog Note Date: 01/17/25 Subjective Pt reports feeling: No change Current Medications Current Medications Current Medications: Current Medications Generic Name Dose Route Start Last Admin Trade Name Shankar PRN Reason Stop Dose Admin Acetaminophen 650 mg 01/09/25 11:14 01/10/25 20:51 Acetaminophen 325 Mg Tablet PO 650 mg Q4HR PRN Administration Pain 1 to 4, or Fever Albuterol/Ipratropium 3 ml 01/09/25 12:42 01/13/25 07:19 Ipratropium/Albuterol 3 Ml Neb INH 3 ml RTQID PRN Administration Shortness of Air/Wheezing Albuterol/Ipratropium 3 ml 01/13/25 11:00 01/17/25 05:59 Ipratropium/Albuterol 3 Ml Neb INH 3 ml RTQID REBECCA Administration Budesonide 0.5 mg 01/10/25 19:00 01/17/25 05:59 Budesonide 0.5 Mg/2 Ml Neb INH 0.5 mg RTBID REBECCA Administration Carbidopa/Levodopa 2 tab 01/09/25 15:24 01/17/25 12:23 Carbidopa/Levodopa 25 Mg/100 Mg Tablet PO 2 tab QID REBECCA Administration Furosemide 20 mg 01/15/25 11:00 01/17/25 08:14 Furosemide 20 Mg/2 Ml Vial IVP 20 mg DAILY REBECCA Administration Guaifenesin 1,200 mg 01/09/25 13:00 01/17/25 08:14 Guaifenesin 600 Mg Tablet PO 1,200 mg BID REBECCA Administration Heparin Sodium (Porcine) 5,000 unit 01/09/25 21:00 01/17/25 08:14 Heparin 5,000 Unit/Ml Vial SUBQ 5,000 unit BID REBECCA Administration Vancomycin HCl 1 gm/ Sodium 250 mls @ 167 mls/hr 01/15/25 10:00 01/17/25 12:17 Chloride IV Infused Q12H REBECCA Infusion Multivitamins/Minerals 1 tab 01/12/25 12:00 01/17/25 08:14 Multivitamin W/Minerals Tablet PO 1 tab DAILYWM REBECCA Administration Ondansetron HCl 4 mg 01/09/25 11:14 Ondansetron 4 Mg/2 Ml Vial IVP Q6HR PRN Nausea / Vomiting Sodium Chloride 10 ml 01/09/25 11:14 01/11/25 04:52 Sodium Chloride Flush 0.9% 10 Ml Syringe IVP 10 ml PRN PRN Administration NEEDED PER PROVIDER ORDERS Sodium Chloride 10 ml 01/09/25 17:00 01/17/25 08:15 Sodium Chloride Flush 0.9% 10 Ml Syringe IVP 10 ml 0100,0900,1700 REBECCA Administration Objective Vital Signs/Intake & Output Reviewed Vital Signs: Yes Vital Signs: Vital Signs x48h Pulse Ox O2 Flow Rate 01/17/25 12:37 92 2 01/17/25 10:16 91 L 4 Intake & Output: Intake & Output 01/14/25 01/15/25 01/16/25 01/17/25 23:59 23:59 23:59 23:59 Intake Total 1360 / 1360 1340 / 1340 1220 / 1220 1090 / 1090 Output Total 1040 / 1040 1405 / 1405 1935 / 1935 800 / 800 Balance 320 / 320 -65 / -65 -715 / -715 290 / 290 Objective General Appearance: positive No acute distress, Alert and Other (Mild conversational dyspnea) ENT: positive ENT inspection nml Neck: positive Nml inspection Respiratory: positive Rhonchi Cardiovascular: positive Regular rate & rhythm Abdomen: positive No distention Skin: positive Color nml Extremities: positive Non-tender and No pedal edema Neurologic/Psychiatric: positive Oriented x3 Lab Results 01/17/25 10:15 01/17/25 10:15 Other Labs: Lab Results x24hrs 01/17/25 01/17/25 01/17/25 Range/Units 13:01 10:15 09:19 WBC 11.5 H (4.8-10.8) x10^3/uL RBC 4.08 L (4.70-6.10) 10^6/uL Hgb 13.0 L (14.0-18.0) g/dL Hct 39.0 L (42.0-52.0) % MCV 95.6 H (80.0-94.0) fL MCH 31.9 H (27.0-31.0) pg MCHC 33.3 (32.0-36.0) g/dL RDW 12.6 (12.0-15.0) % Plt Count 248 (130-450) 10^3/uL MPV 9.4 (7.4-11.4) fL Neut # (Auto) 10.0 H (1.5-6.6) 10^3/uL Lymph # (Auto) 0.5 L (1.5-3.5) 10^3/uL Aiken # (Auto) 0.7 (0.0-1.0) 10^3/uL Eos # (Auto) 0.0 (0.0-0.7) 10^3/uL Baso # (Auto) 0.0 (0.0-0.1) 10^3/uL Absolute Nucleated RBC 0.00 x10^3/uL Nucleated RBC % 0.0 /100WBC Sodium 138 (135-145) mmol/L Potassium 3.9 (3.5-4.5) mmol/L Chloride 103 (101-111) mmol/L Carbon Dioxide 27 (21-32) mmol/L Anion Gap 8.0 (6-13) BUN 28 H (6-20) mg/dL Creatinine 1.1 (0.6-1.3) mg/dL Estimated GFR (MDRD) 65 L (>89) Glucose 147 H (74-104) mg/dL Calcium 8.5 (8.5-10.3) mg/dL Last Dose Date 314121001/16/25 Last Dose Time 1216 2339 Vancomycin Peak 34.5 (20.0-40.0) ug/mL Vancomycin Trough 13.9 ug/mL Sepsis Event Note (H) Evaluation Possible source of Sepsis: positive Pulmonary Sepsis Criteria Sepsis Criteria: Recorded Respiratory Rate greater than 20 Assessment/Plan Problem List (1) Acute hypoxic respiratory failure: Impression: 01/17: He continues to show improvement in his respiratory status. I have weaned him down to 2 L BNC during my interview. I am continuing his Lasix 20 mg IV push and antibiotics as below. Guidelines recommend 5 to 7-day course of antibiotic treatment. I told him that if he is on room air on day 5 of his IV vancomycin that I can shorten his course to 5 days and send him home. We will see if he is on room air by tomorrow 01/16: Weaned down to 5 L BNC at time of my interview. I am continuing his Lasix 20 mg IV push daily with daily BMP to monitor for toxicity. Antibiotics as below. Out of ICU today 01/15: High flow nasal cannula has been weaned down to 40 L / 50%. I am starting him on Lasix 20 mg IV push daily to see if this helps his respiratory status improved. I am continuing his twice daily guaifenesin Has had respiratory symptoms since a week prior to presentation. Chest x-ray shows multifocal pneumonia. No concern for aspiration event. Negative viral panel. He completed a 5-day course of Rocephin and a 3-day course of azithromycin. Due to lack of clinical improvement, he was started on a course of Decadron (2) Pneumonia: Impression: CT chest shows concern for viral pneumonitis, respiratory viral panel negative. Completed 3 days Zithromax, 5 days Rocephin. Sputum cultures are showing staph warneri, which is resistant to multiple drugs. I am continuing his vancomycin while monitoring renal function and Vanco troughs for toxicity. I have discontinued his cefepime 01/16/2025: Day 3 of vancomycin. Productive cough. Continue vancomycin while monitoring for renal toxicity. Antibiotic course should be 5 to 7 days. Will consider shorter course if on day 5 he has been afebrile x 48 hours and negative procalcitonin 01/17/2025: Day 4 vancomycin. Pharmacy has ordered peaks and troughs to ascertain serum concentration. Continuing to watch daily BMPs for renal toxicity. As discussed above, his course of vancomycin could be done as early as tomorrow. We are not able to contact infusion solutions over the weekend, so we are unable to set him up for antibiotics until Sunday or Sunday, at which point he would be finished with his antibiotics anyway. Qualifiers: Laterality: bilateral Lung location: unspecified part of lung P neumonia type: due to unspecified organism Qualified Code(s): J18.9 - Pneumonia, unspecified organism (3) Parkinson disease: Impression: He is followed by Dr. Anushka Morejon of [place] [facility]. He is stable on his current Sinemet dosing. He is acutely weak due to this infection. He has been up with help. not strong enough to go home yet.
[2025-01-18 09:07] LABS: BASOPHILS % (AUTO) 0.2 %; EOSINOPHILS % (AUTO) 0.2 %; HCT - HEMATOCRIT 41.2 % (42.0-52.0); HGB - HEMOGLOBIN 13.4 g/dL (14.0-18.0); LYMPHOCYTES % (AUTO) 7.5 %; MEAN CORPUSCULAR HEMOGLOBIN 31.1 pg (27.0-31.0); MEAN CORPUSCULAR HGB CONC 32.5 g/dL (32.0-36.0); MEAN CORPUSCULAR VOLUME 95.6 fL (80.0-94.0); MEAN PLATELET VOLUME 9.5 fL (7.4-11.4); MONOCYTES # (AUTO) 0.9 10^3/uL (0.0-1.0); MONOCYTES % (AUTO) 6.9 %; NEUTROPHILS # (AUTO) 10.7 10^3/uL (1.5-6.6); PLT - PLATELET COUNT 302 10^3/uL (130-450); RED BLOOD COUNT 4.31 10^6/uL (4.70-6.10); RED CELL DISTRIBUTION WIDTH 12.6 % (12.0-15.0); WHITE BLOOD COUNT 12.8 x10^3/uL (4.8-10.8)
[2025-01-18 09:26] LABS: CALCIUM 8.6 mg/dL (8.5-10.3); CREATININE 1.2 mg/dL (0.6-1.3); POTASSIUM 3.4 mmol/L (3.5-4.5)
[2025-01-18] MEDS: POTASSIUM CHLORIDE 20 MEQ TABLET PO ONE (10:47)
[2025-01-18 11:52] VITALS: BP 113/79; TEMP 97.7; O2SAT 93
--- NOTE | 2025-01-18 13:02 | Discharge Summary ---
Discharge Summary Admit Date: 01/09/25 Discharge Date: 01/18/25 Discharging Provider: Reid Cameron NP Primary Care Provider: Chino Back Code Status: Attempt Resuscitation DIAGNOSES Admission Diagnoses: Acute hypoxemic respiratory failure Multifocal pneumonia Parkinson disease Discharge Diagnoses with Status of Each Condition: Acute hypoxemic respiratory failureresolved Multifocal pneumoniaresolved Parkinson diseasechronic HPI History of Present Illness: Has been feeling sick with a cold for about 1 week. Started with achiness and fatigue and then went into a chest cold which is just making him worse. He has a history of Parkinson's disease for which she takes Sinemet. He feels like he is just getting much weaker as he has had this virus. His cough is occasionally productive. He denies any difficulty swallowing or any choking. He has not had any fevers he does admit to some night sweats. He has not had any nausea vomiting or diarrhea although his appetite has been decreased. As he never he goes on we discussed sleep apnea. His has noted some episodes of apnea as he is sleeping. He does take a nap every day after lunch. He denies any sleepiness while driving. At baseline he is ambulatory with a walker and maintains all of his ADLs. He drives. He recently went on a trip to [place] with 4 of his children. He did well and enjoyed this, however, he got sick on arrival home. HOSPITAL COURSE Hospital Course: He was admitted into the hospital and started on a course of Rocephin and azithromycin, which she completed with no effect. He was on high flow O2 in the ICU during this time. CT chest was performed which showed extensive bilateral interstitial infiltrates. A sputum culture resulted positive for staph warneri, so he was started on IV vancomycin. He completed a 5-day course of vancomycin and he was able to wean off to room air today. ALLERGIES Allergies Allergy/AdvReac Type Severity Reaction Status Date / Time No Known Drug Allergies Allergy Verified 01/09/25 08:39 MEDICATIONS Ambulatory Orders Medication Instructions Recorded Confirmed carbidopa 25 mg-levodopa 100 mg 2 tab PO QID 01/09/25 01/09/25 tablet PHYSICAL EXAM AT DISCHARGE General Appearance: positive No acute distress and Alert Eyes Bilateral: positive Normal inspection and PERRL ENT: positive ENT inspection nml Respiratory: positive Chest non-tender Cardiovascular: positive Regular rate & rhythm Peripheral Pulses: positive 2+ Abdomen: positive Non-tender Back: positive Nml inspection Skin: positive Color nml Extremities: positive Non-tender Neurologic/Psychiatric: positive Oriented x3 LABS 01/18/25 09:00 01/18/25 09:00 SEPSIS Possible source of Sepsis: Pulmonary Sepsis Criteria: Recorded Respiratory Rate greater than 20 FOLLOW UP Follow Up: With PCP TIME SPENT Time Spent in Discharge (Minutes): 25 Discharge Plan Discharge Patient Disposition: Home, Self Care Condition: Stable Medically Cleared Date:: 01/18/25 Prescriptions: Continued carbidopa-levodopa 25-100 mg tablet 2 tab PO QID Activity Restrictions: No Restrictions Diet: Regular Health Concerns: You came into the hospital with a severe pneumonia. You completed a course of Rocephin and azithromycin with no effect. Your respiratory culture then showed staph warneri, which is only susceptible to IV vancomycin. You finished a 5-day course of vancomycin, as well as a oral steroid. Today, you are on room air, afebrile, stable for discharge home. I am not making any changes to your home medication regimen. If you experience chest congestion, I would recommend an [id number] mucolytic such as Mucinex. If you start to have fevers and chills, please notify a healthcare provider as he may need an extended course of antibiotics. I would like for you to remain as active as possible. We have discussed how being in an upright position and/or walking are good for pulmonary function. Please follow-up with your primary care provider Print Language: Emirati Patient Instructions: ED Pneumonia Adult Stand Alone Forms: PCP List Follow-up Care: CHINO BACK MD [Primary Care Provider] -
== END 2025-01-18 14:40 | disposition home or self-care (01) | DRG 871 ==
LOC: ED 08:31 → MS3 10:50 → ICU 01-11 21:48 → MS3 01-17 20:43
PROVIDERS: ADMIT Physician Assistant Medical; ATTEND Physician Assistant Medical
DX: Z20.822 Contact with and (suspected) exposure to COVID-19; Z20.818 Contact with and (suspected) exposure to other bacterial communicable diseases; J96.01 Acute respiratory failure with hypoxia; I45.10 Unspecified right bundle-branch block; Z20.828 Contact with and (suspected) exposure to other viral communicable diseases; Z79.899 Other long term (current) drug therapy; I44.4 Left anterior fascicular block; G20.A1 Parkinson's disease without dyskinesia, without mention of fluctuations; J18.9 Pneumonia, unspecified organism; A41.9 Sepsis, unspecified organism